=== PATIENT | female | born 1985 | race Caucasian/White ===

== ENCOUNTER 2017-11-05 09:04 | Emergency (ER) | payer OTHER ==
[2017-11-05 09:17] VITALS: RESP 18; TEMP 98.1
[2017-11-05] MEDS ORDERED: PROPARACAINE 0.5% OPHTH DROPS 15 ML BTL RIGHT EYE STA (09:46)
[2017-11-05] MEDS ORDERED: PROPARACAINE 0.5% OPHTH DROPS 15 ML BTL ONE (09:46)
[2017-11-05] MEDS ORDERED: SODIUM CHLORIDE 0.9% 1,000 ML IV STA (10:04)
--- NOTE | 2017-11-05 10:08 | ED ---
General Adult HPI - General Chief complaint: Eye Problems Stated complaint: POSS EYE INFECTION Time Seen by Provider: 11/05/17 09:14 Source: patient, RN notes reviewed Mode of arrival: ambulatory Limitations: no limitations - History of Present Illness Initial comments: Patient's 32-year-old female presenting to the emergency room today with a chief complaint of bilateral eye infection. Patient does admit that she noticed some watery drainage over the last 2-3 days. States they have, red irritated. States they're itchy and scratchy. She does admit that she woke up as well as morning with a rash. She states she's felt some chills at home. Does admit to cough and congestion. Patient does make to being a contact wear. States she does sleep or contacts at times. Patient does admit that right eye is worse than left. She states she's had some blurry vision. Patient also admits to some crusting over the eyelid in the morning. Patient denies any other complaints. Patient denies any recent fever, chills, shortness of breath, chest pain, back pain, abdominal pain, nausea or vomiting, numbness or tingling , headaches or visual changes, or any other complaints. - Related Data Home Medications Medication Instructions Recorded Confirmed Ascorbic Acid [Vitamin C] 1,000 mg PO DAILY 11/05/17 11/05/17 Cyanocobalamin (Vitamin B-12) 2,500 mcg PO DAILY 11/05/17 11/05/17 [Vitamin B12] Allergies Allergy/AdvReac Type Severity Reaction Status Date / Time No Known Allergies Allergy Verified 11/05/17 09:26 Review of Systems ROS Statement: Those systems with pertinent positive or pertinent negative responses have been documented in the HPI. ROS Other: All systems not noted in ROS Statement are negative. Past Medical History Additional Past Medical History / Comment(s): pancreatitis History of Any Multi-Drug Resistant Organisms: None Reported Past Surgical History: No Surgical Hx Reported Past Psychological History: Anxiety, Depression Smoking Status: Never smoker Past Alcohol Use History: Abuse, Daily Past Drug Use History: None Reported General Exam - General Exam Comments Initial Comments: General: The patient is awake and alert, in no distress, and does not appear acutely ill. Eye: Pupils are equal, round and reactive to light. Extra-ocular movements are intact. No nystagmus. Increased redness erythema to the conjunctiva bilaterally. Watery discharge. Eye pressures: R: 21, L: 10. Ears, nose, mouth and throat: There are moist mucous membranes and no oral lesions. Neck: The neck is supple, there is no tenderness or JVD. Cardiovascular: There is a regular rate and rhythm. No murmur, rub or gallop is appreciated. Respiratory: Lungs are clear to auscultation, respirations are non-labored, breath sounds are equal. No wheezes, stridor, rales, or rhonchi. Musculoskeletal: Normal ROM, no tenderness. Sensation intact. Neurological: A&O x 3. CN II-XII intact, There are no obvious motor or sensory deficits. Coordination appears grossly intact. Speech is normal. Skin: Skin is warm and dry and no rashes or lesions are noted. Psychiatric: Cooperative, appropriate mood & affect, normal judgment. Limitations: no limitations Course Vital Signs 11/05/17 11/05/17 09:10 10:37 Temperature 98.1 F Pulse Rate 91 79 Respiratory 18 18 Rate Blood Pressure 165/101 137/91 O2 Sat by Pulse 99 99 Oximetry Procedures - Procedures Initial comment: Patient's left and right eyes were anesthetized with proparacaine which did relieve symptoms of scratchiness and itching. The eyes bilaterally were stained with fluorescein and checked with slit lamp exam revealing corneal ulcer on the right and a small ulcers seen on the left eye. Medical Decision Making - Medical Decision Making Patient reexamined this time shows no signs of distress. Patient's slit-lamp exam does reveal corneal ulcer bilaterally. worse on the right than the left. Patient is a contact wearer. Case was discussed and seen by attending physician Dr. Akers. She'll be started on antibiotic drops of Floxin here in the emergency room. Case is discussed with ophthalmology on-call Dr. Castillo's office and patient has an appointment in one hour at 12:45p. Patient's labs been reviewed. Liver enzymes mildly elevated. Patient is a daily drinker. Patient feeling better after IV fluids. - Lab Data Result diagrams: 11/05/17 10:33 11/05/17 10:33 Lab Results 11/05/17 11/05/17 11/05/17 Range/Units 10:33 10:33 10:33 WBC 5.4 (3.8-10.6) k/uL RBC 4.28 (3.80-5.40) m/uL Hgb 14.0 (11.4-16.0) gm/dL Hct 42.1 (34.0-46.0) % MCV 98.4 (80.0-100.0) fL MCH 32.8 (25.0-35.0) pg MCHC 33.3 (31.0-37.0) g/dL RDW 13.0 (11.5-15.5) % Plt Count 142 L (150-450) k/uL Neutrophils % 87 % Lymphocytes % 7 % Monocytes % 5 % Eosinophils % 0 % Basophils % 0 % Neutrophils # 4.7 (1.3-7.7) k/uL Lymphocytes # 0.4 L (1.0-4.8) k/uL Monocytes # 0.3 (0-1.0) k/uL Eosinophils # 0.0 (0-0.7) k/uL Basophils # 0.0 (0-0.2) k/uL Sodium 137 (137-145) mmol/L Potassium 4.1 (3.5-5.1) mmol/L Chloride 94 L (98-107) mmol/L Carbon Dioxide 24 (22-30) mmol/L Anion Gap 19 mmol/L BUN 17 (7-17) mg/dL Creatinine 0.58 (0.52-1.04) mg/dL Est GFR (CKD-EPI)AfAm >90 (>60 ml/min/1.73 sqM) Est GFR (CKD-EPI)NonAf >90 (>60 ml/min/1.73 sqM) Glucose 72 L (74-99) mg/dL Calcium 9.4 (8.4-10.2) mg/dL Total Bilirubin 1.0 (0.2-1.3) mg/dL AST 157 H (14-36) U/L ALT 106 H (9-52) U/L Alkaline Phosphatase 73 (38-126) U/L Total Protein 8.7 H (6.3-8.2) g/dL Albumin 5.0 (3.5-5.0) g/dL Urine Color Urine Appearance (Clear) Urine pH (5.0-8.0) Ur Specific [place] (1.001-1.035) Urine Protein (Negative) Urine Glucose (UA) (Negative) Urine Ketones (Negative) Urine Blood (Negative) Urine Nitrite (Negative) Urine Bilirubin (Negative) Urine Urobilinogen (<2.0) mg/dL Ur Leukocyte Esterase (Negative) Urine RBC (0-5) /hpf Urine WBC (0-5) /hpf Ur Squamous Epith Cells (0-4) /hpf Urine Bacteria (None) /hpf Urine Mucus (None) /hpf Urine HCG, Qual Not Detected (Not Detectd) 11/05/17 Range/Units 10:33 WBC (3.8-10.6) k/uL RBC (3.80-5.40) m/uL Hgb (11.4-16.0) gm/dL Hct (34.0-46.0) % MCV (80.0-100.0) fL MCH (25.0-35.0) pg MCHC (31.0-37.0) g/dL RDW (11.5-15.5) % Plt Count (150-450) k/uL Neutrophils % % Lymphocytes % % Monocytes % % Eosinophils % % Basophils % % Neutrophils # (1.3-7.7) k/uL Lymphocytes # (1.0-4.8) k/uL Monocytes # (0-1.0) k/uL Eosinophils # (0-0.7) k/uL Basophils # (0-0.2) k/uL Sodium (137-145) mmol/L Potassium (3.5-5.1) mmol/L Chloride (98-107) mmol/L Carbon Dioxide (22-30) mmol/L Anion Gap mmol/L BUN (7-17) mg/dL Creatinine (0.52-1.04) mg/dL Est GFR (CKD-EPI)AfAm (>60 ml/min/1.73 sqM) Est GFR (CKD-EPI)NonAf (>60 ml/min/1.73 sqM) Glucose (74-99) mg/dL Calcium (8.4-10.2) mg/dL Total Bilirubin (0.2-1.3) mg/dL AST (14-36) U/L ALT (9-52) U/L Alkaline Phosphatase (38-126) U/L Total Protein (6.3-8.2) g/dL Albumin (3.5-5.0) g/dL Urine Color Yellow Urine Appearance Clear (Clear) Urine pH 5.5 (5.0-8.0) Ur Specific [place] 1.030 (1.001-1.035) Urine Protein 1+ H (Negative) Urine Glucose (UA) Negative (Negative) Urine Ketones 4+ H (Negative) Urine Blood Trace H (Negative) Urine Nitrite Negative (Negative) Urine Bilirubin Negative (Negative) Urine Urobilinogen 2.0 (<2.0) mg/dL Ur Leukocyte Esterase Negative (Negative) Urine RBC 3 (0-5) /hpf Urine WBC 1 (0-5) /hpf Ur Squamous Epith Cells 2 (0-4) /hpf Urine Bacteria Rare H (None) /hpf Urine Mucus Moderate H (None) /hpf Urine HCG, Qual (Not Detectd) Disposition Clinical Impression: Corneal ulcer Disposition: HOME SELF-CARE Condition: Good Instructions: Corneal Ulcer (ED) Additional Instructions: Please use medication as discussed. Please follow-up control systems designer in the office with your appointment at 1245 today. Please return to emergency room if the symptoms increase or worsen or for any other concerns. Is patient prescribed a controlled substance at d/c from ED?: No Referrals: None,Stated [Primary Care Provider] - 1-2 days Darvin Castillo MD [STAFF PHYSICIAN] - 1-2 days Time of Disposition: 11:22
[2017-11-05 10:53] LABS: Basophils % (A) 0 %; Eosinophils % (A) 0 %; HCT 42.1 % (34.0-46.0); Lymphocytes # (A) 0.4 k/uL (1.0-4.8); Lymphocytes % (A) 7 %; MCH 32.8 pg (25.0-35.0); MCHC 33.3 g/dL (31.0-37.0); MCV 98.4 fL (80.0-100.0); Mean Platelet Volume 7.4; Monocytes # (A) 0.3 k/uL (0-1.0); Monocytes % (A) 5 %; Neutrophils # (A) 4.7 k/uL (1.3-7.7); Neutrophils % (A) 87 %; Platelet Count 142 k/uL (150-450); RBC 4.28 m/uL (3.80-5.40); WBC 5.4 k/uL (3.8-10.6)
[2017-11-05 10:56] LABS: Appearance,Urine Clear (Clear); Bacteria,Urine Rare /hpf; Bilirubin,Urine Negative (Negative); Blood,Urine Trace (Negative); Color,Urine Yellow; Glucose,Urine (UA) Negative (Negative); Ketones,Urine 4+ (Negative); Leukocyte Esterase,Urine Negative (Negative); Mucus,Urine Moderate /hpf; Nitrite,Urine Negative (Negative); PH, Urine 5.5 (5.0-8.0); Protein,Urine 1+ (Negative); RBC,Urine 3 /hpf (0-5); Squamous Epithelial Cell,Urine 2 /hpf (0-4)
[2017-11-05 11:00] LABS: ALT 106 U/L (9-52); AST 157 U/L (14-36); Alkaline Phosphatase 73 U/L (38-126); Anion Gap 19 mmol/L; Blood Urea Nitrogen 17 mg/dL (7-17); Calcium 9.4 mg/dL (8.4-10.2); Carbon Dioxide 24 mmol/L (22-30); Chloride 94 mmol/L (98-107); Glucose 72 mg/dL (74-99); Potassium 4.1 mmol/L (3.5-5.1); Sodium 137 mmol/L (137-145); Total Protein 8.7 g/dL (6.3-8.2)
[2017-11-05] MEDS ORDERED: OFLOXACIN 0.3% OPHTH DROPS 5 ML BOTTLE BOTH EYES STA (11:22)
[2017-11-05 12:00] VITALS: BP 142/88; PULSE 85
== END 2017-11-05 11:59 | disposition home or self-care (01) ==
LOC: EC 09:04
DX: H16.003 Unspecified corneal ulcer, bilateral (principal)
CPT/HCPCS: 36415; 80053; 81001; 81025; 85025; 87040; 96360; 99283

== ENCOUNTER 2018-01-24 22:45 | Emergency (ER) | payer OTHER ==
[2018-01-24 22:53] VITALS: RESP 16
[2018-01-24] MEDS ORDERED: SODIUM CHLORIDE 0.9% 1,000 ML IV ONE (23:24)
[2018-01-24 23:46] LABS: Basophils % (A) 0 %; Eosinophils # (A) 0.1 k/uL (0-0.7); Eosinophils % (A) 2 %; HCT 38.1 % (34.0-46.0); HGB 12.5 gm/dL (11.4-16.0); Lymphocytes # (A) 1.4 k/uL (1.0-4.8); Lymphocytes % (A) 28 %; MCH 31.3 pg (25.0-35.0); MCHC 32.9 g/dL (31.0-37.0); MCV 95.1 fL (80.0-100.0); Mean Platelet Volume 6.8; Monocytes # (A) 0.3 k/uL (0-1.0); Monocytes % (A) 5 %; Neutrophils # (A) 3.2 k/uL (1.3-7.7); Neutrophils % (A) 63 %; Platelet Count 235 k/uL (150-450); RBC 4.01 m/uL (3.80-5.40); RDW 13.4 % (11.5-15.5)
[2018-01-25 00:14] LABS: ALT 52 U/L (9-52); AST 57 U/L (14-36); Albumin 4.1 g/dL (3.5-5.0); Alkaline Phosphatase 53 U/L (38-126); Anion Gap 14 mmol/L; Blood Urea Nitrogen 10 mg/dL (7-17); Calcium 7.8 mg/dL (8.4-10.2); Carbon Dioxide 23 mmol/L (22-30); Chloride 109 mmol/L (98-107); Glucose 85 mg/dL (74-99); Lipase 89 U/L (23-300); Magnesium 2.1 mg/dL (1.6-2.3); Potassium 4.3 mmol/L (3.5-5.1); Sodium 146 mmol/L (137-145); Total Bilirubin 0.5 mg/dL (0.2-1.3); Total Protein 7.2 g/dL (6.3-8.2)
--- NOTE | 2018-01-25 00:37 | ED ---
General Adult HPI - General Source: patient, EMS, RN notes reviewed Mode of arrival: EMS Limitations: no limitations <Dayo Hannah P - Last Filed: 01/25/18 00:41> <Eram Day P - Last Filed: 01/25/18 04:27> - General Chief complaint: Alcohol Stated complaint: ETOH Time Seen by Provider: 01/24/18 22:48 - History of Present Illness Initial comments: 32-year-old female presents to the emergency department for a chief complaint of alcohol abuse 2 years. Patient apparently was drinking tonight and fell forward hitting her lip. She refuses to discuss the details of this fall but denies hitting her head. She does have a small laceration to the lip. She states her tetanus is up-to-date. She states she has been tired throughout the day and sleeping more than normal. She states this has been ongoing for months. She denies any cough congestion sore throat. Patient denies any suicidal thoughts, depressive thoughts, but harming herself, or thoughts of harming anyone else. Patient was brought in by EMS because her father wanted her evaluated for chronic alcoholism after this fall. Patient has no other complaints at this time including shortness of breath, chest pain, abdominal pain, nausea or vomiting, headache, or visual changes. (Dayo Hannah) - Related Data Home Medications Medication Instructions Recorded Confirmed Ascorbic Acid [Vitamin C] 1,000 mg PO DAILY 11/05/17 11/05/17 Cyanocobalamin (Vitamin B-12) 2,500 mcg PO DAILY 11/05/17 11/05/17 [Vitamin B12] Allergies Allergy/AdvReac Type Severity Reaction Status Date / Time No Known Allergies Allergy Verified 11/05/17 09:26 Review of Systems ROS Other: All systems not noted in ROS Statement are negative. <Dayo Hannah P - Last Filed: 01/25/18 00:41> ROS Other: All systems not noted in ROS Statement are negative. <Erma Day P - Last Filed: 01/25/18 04:27> ROS Statement: Those systems with pertinent positive or pertinent negative responses have been documented in the HPI. Past Medical History Additional Past Medical History / Comment(s): pancreatitis History of Any Multi-Drug Resistant Organisms: None Reported Past Surgical History: No Surgical Hx Reported Past Psychological History: Anxiety, Depression Smoking Status: Never smoker Past Alcohol Use History: Abuse, Daily Past Drug Use History: None Reported <Dayo Hannah P - Last Filed: 01/25/18 00:41> General Exam Limitations: no limitations General appearance: alert, in no apparent distress Head exam: Present: atraumatic (No signs of trauma noted to the head or neck such as ecchymosis or lacerations), normocephalic, normal inspection Eye exam: Present: normal appearance, PERRL, EOMI. Absent: scleral icterus, conjunctival injection, periorbital swelling ENT exam: Present: normal exam, mucous membranes moist, TM's normal bilaterally , normal external ear exam. Absent: normal oropharynx (Patient has a 1 cm laceration to the left posterior lip. This is not extending into the vermilion border. No other trauma noted in the mouth, all teeth intact.) Neck exam: Present: normal inspection, full ROM. Absent: tenderness, meningismus, lymphadenopathy Respiratory exam: Present: normal lung sounds bilaterally. Absent: respiratory distress, wheezes, rales, rhonchi, stridor Cardiovascular Exam: Present: regular rate, normal rhythm, normal heart sounds. Absent: systolic murmur, diastolic murmur, rubs, gallop, clicks Neurological exam: Present: alert, oriented X3, CN II-XII intact Psychiatric exam: Present: normal affect, normal mood <Dayo Hannah P - Last Filed: 01/25/18 00:41> Vital Signs 01/24/18 01/25/18 22:46 00:46 Temperature 98.0 F 97.8 F Pulse Rate 97 89 Respiratory 16 16 Rate Blood Pressure 139/99 133/78 O2 Sat by Pulse 98 99 Oximetry Medical Decision Making - Lab Data Result diagrams: 01/24/18 23:30 01/24/18 23:30 <Dayo Hannah P - Last Filed: 01/25/18 00:41> - Lab Data Result diagrams: 01/24/18 23:30 01/24/18 23:30 <Erma Day P - Last Filed: 01/25/18 04:27> - Medical Decision Making 32-year-old female presents to the emergency department for chief complaint of chronic alcoholism. Patient also fell today and has a small lip laceration about 0.5 cm. She refuses for this to be sutured. Patient states she is up-to- date on tetanus. Patient is well-appearing although does appear slightly intoxicated. However she is ambulatory. CBC and CMP were drawn which were unremarkable. Patient denied suicidal or depressive thoughts or thoughts of harming herself or anyone else. Patient was given referrals to counselors and alcohol programs. She was again reevaluated and is walking without any difficulty. She has a ride home with her father who will monitor her throughout the night. She will return here if she has any worsening symptoms. ( Daoy Hannah) I personally saw and examined the patient. I reviewed and agree with the mid- level provider findings including all diagnostic interpretations and treatment plans as written. (Erma Day) - Lab Data Lab Results 01/24/18 01/24/18 Range/Units 23:30 23:30 WBC 5.0 (3.8-10.6) k/uL RBC 4.01 (3.80-5.40) m/uL Hgb 12.5 (11.4-16.0) gm/dL Hct 38.1 (34.0-46.0) % MCV 95.1 (80.0-100.0) fL MCH 31.3 (25.0-35.0) pg MCHC 32.9 (31.0-37.0) g/dL RDW 13.4 (11.5-15.5) % Plt Count 235 (150-450) k/uL Neutrophils % 63 % Lymphocytes % 28 % Monocytes % 5 % Eosinophils % 2 % Basophils % 0 % Neutrophils # 3.2 (1.3-7.7) k/uL Lymphocytes # 1.4 (1.0-4.8) k/uL Monocytes # 0.3 (0-1.0) k/uL Eosinophils # 0.1 (0-0.7) k/uL Basophils # 0.0 (0-0.2) k/uL Sodium 146 H (137-145) mmol/L Potassium 4.3 (3.5-5.1) mmol/L Chloride 109 H (98-107) mmol/L Carbon Dioxide 23 (22-30) mmol/L Anion Gap 14 mmol/L BUN 10 (7-17) mg/dL Creatinine 0.57 (0.52-1.04) mg/dL Est GFR (CKD-EPI)AfAm >90 (>60 ml/min/1.73 sqM) Est GFR (CKD-EPI)NonAf >90 (>60 ml/min/1.73 sqM) Glucose 85 (74-99) mg/dL Calcium 7.8 L (8.4-10.2) mg/dL Magnesium 2.1 (1.6-2.3) mg/dL Total Bilirubin 0.5 (0.2-1.3) mg/dL AST 57 H (14-36) U/L ALT 52 (9-52) U/L Alkaline Phosphatase 53 (38-126) U/L Total Protein 7.2 (6.3-8.2) g/dL Albumin 4.1 (3.5-5.0) g/dL Lipase 89 (23-300) U/L Disposition Is patient prescribed a controlled substance at d/c from ED?: No Time of Disposition: 00:37 <Dayo Hannah P - Last Filed: 01/25/18 00:41> <Erma Day P - Last Filed: 01/25/18 04:27> Clinical Impression: Alcoholic intoxication Disposition: HOME SELF-CARE Condition: Good Instructions: Alcohol Intoxication (ED), Abuse of Alcohol (ED) Additional Instructions: Please follow up with the resources given to you. Please follow-up with primary care in 1-2 days. Please return to the emergency department if you have any worsening symptoms. Referrals: Kevin Garnica MD [Primary Care Provider] - 1-2 days
[2018-01-25 00:48] VITALS: BP 133/78; PULSE 89; TEMP 97.8
== END 2018-01-25 00:48 | disposition home or self-care (01) ==
LOC: EC 22:45
DX: F10.129 Alcohol abuse with intoxication, unspecified (principal); S01.511A Laceration without foreign body of lip, initial encounter; W01.0XXA Fall on same level from slipping, tripping and stumbling without subsequent striking against object, initial encounter
CPT/HCPCS: 36415; 80053; 83690; 83735; 85025; 96360; 99284

== ENCOUNTER 2021-06-24 18:48 | Inpatient (IN) | payer OTHER ==
--- NOTE | 2021-06-24 21:06 | US ---
EXAMINATION TYPE: US venous doppler duplex LE RT DATE OF EXAM: 06/24/2021 8:38 PM COMPARISON: NONE CLINICAL HISTORY: swelling r/o dvt. Pain, swelling, warmth, redness to the right lower extremity. Pat ient had 7 weeks ago. SIDE PERFORMED: Right TECHNIQUE: The lower extremity deep venous system is examined utilizing real time linear array sonog rajani with graded compression, doppler sonography and color-flow sonography. VESSELS IMAGED: Common Femoral Vein Deep Femoral Vein Greater Saphenous Vein * Femoral Vein Popliteal Vein Small Saphenous Vein * Proximal Calf Veins (* superficial vessels) [place] Vs PTVs Right Leg: Absent color Doppler flow with hyperechoic thrombus seen throughout the superficial and d eep venous vasculature. IMPRESSION: Right Deep vein thrombosis extending from the confluence of the great saphenous vein with the common femoral vein and extending through the femoral vein, popliteal vein and into the posterior tibial vei ns as well within the superficial peroneal veins.
[2021-06-24] MEDS ORDERED: MORPHINE SULFATE 4 MG/ML SYRINGE IV STA (21:26)
[2021-06-24] MEDS ORDERED: SODIUM CHLORIDE 0.9% 1,000 ML IV STA (21:26)
[2021-06-24] MEDS ORDERED: HEPARIN SODIUM 1,000 UN/ML (10ML VL) IV PRN (21:27)
[2021-06-24] MEDS ORDERED: HEPARIN SODIUM 1,000 UN/ML (10ML VL) IV ONE (21:27)
--- NOTE | 2021-06-24 21:35 | ED ---
General Adult HPI - General Chief complaint: Extremity Injury, Lower Stated complaint: leg pain Time Seen by Provider: 06/24/21 21:10 Source: patient, RN notes reviewed, old records reviewed Mode of arrival: wheelchair Limitations: no limitations - History of Present Illness Initial comments: This is a pleasant, well-appearing 36-year-old female that presents alert and oriented 4 with complaints of right leg pain, swelling and cramping for 2 days. Patient states that she had a baby 7 weeks ago by , otherwise uncomplicated delivery. She states that for the past couple of days she's had increasing cramping in the right groin that has led to swelling and discoloration of the leg from groin to the foot. She states that today she was becoming short of breath with ambulation. She states that she is not a smoker. No previous history of DVTs. She states that her mom is hospitalized at this time for a DVT and she was here to visit. -: days(s) (2) Location: right, lower extremity Radiation: non-radiation Severity scale (1-10): 6 Quality: other (cramping) Associated Symptoms: denies other symptoms Treatments Prior to Arrival: none - Related Data Home Medications Medication Instructions Recorded Confirmed Cholecalciferol [Vitamin D3 (25 25 mcg PO DAILY 06/24/21 06/24/21 Mcg = 1000 Iu)] [place]-3 Fatty Acids [[place]-3] 1,000 mg PO DAILY 06/24/21 06/24/21 [id number] Acid 1 cap PO DAILY 06/24/21 06/24/21 [-U Capsule (formulary)] Venlafaxine HCl [Effexor XR] 37.5 mg PO DAILY 06/24/21 06/24/21 buPROPion HCL [Wellbutrin XL] 150 mg PO DAILY 06/24/21 06/24/21 Allergies Allergy/AdvReac Type Severity Reaction Status Date / Time No Known Allergies Allergy Verified 06/24/21 22:08 Review of Systems ROS Statement: Those systems with pertinent positive or pertinent negative responses have been documented in the HPI. ROS Other: All systems not noted in ROS Statement are negative. Past Medical History Past Medical History: No Reported History Additional Past Medical History / Comment(s): pancreatitis History of Any Multi-Drug Resistant Organisms: None Reported Past Surgical History: No Surgical Hx Reported Past Psychological History: Anxiety, Depression Smoking Status: Never smoker Past Alcohol Use History: Abuse, Daily Past Drug Use History: None Reported General Exam Limitations: no limitations General appearance: alert, in no apparent distress Head exam: Present: atraumatic Eye exam: Present: normal appearance. Absent: scleral icterus, conjunctival injection Neck exam: Present: full ROM. Absent: tenderness, meningismus Respiratory exam: Present: normal lung sounds bilaterally. Absent: respiratory distress Cardiovascular Exam: Present: tachycardia, normal heart sounds GI/Abdominal exam: Present: soft Right Upper Leg exam: Present: swelling (There is discoloration to the extremity, pedal pulses present) Knee exam: Present: swelling Lower Leg exam: Present: swelling Ankle exam: Present: swelling Foot/Toe exam: Present: swelling Neurovascular tendon exam: Present: no vascular compromise. Absent: pulse deficit, abnormal cap refill, extremity cold to touch, foot drop Neurological exam: Present: alert, oriented X3 Psychiatric exam: Present: normal affect, normal mood Skin exam: Present: warm, dry, cyanosis (right lower extremity) Course Vital Signs 06/24/21 18:52 Temperature 98.2 F Pulse Rate 105 H Respiratory 22 Rate Blood Pressure 116/73 O2 Sat by Pulse 100 Oximetry EKG Findings - EKG Results: EKG: sinus rhythm (Ventricular rate 87, [place] interval 0.179, QRS 0.109, QTC 0.422) Medical Decision Making - Medical Decision Making 36-year-old female presents with right leg swelling status post 7 weeks ago. She states that the swelling in the right leg started couple of days ago is progressively getting worse crampy in nature. Ultrasound was ordered showing a DVT extending from the greater saphenous vein and common femoral vein extending to the femoral vein popliteal vein and posterior tibial veins. Patient was started on high-dose heparin. Labs show d-dimer greater than 34, troponin negative at 0.012, GFR greater than 90. I did speak with Dr. Pleitez who recommended CT pelvis. CT of pelvis shows Thrombosis of the right femoral and iliac vein extending to the inferior vena cava. CT of the chest shows multiple bilateral upper and lower pulmonary emboli predominantly in the lower lobes. There is no evidence of right heart strain, no suspicious pulmonary mass. Patient was admitted to the hospital. An additional consult to pulmonology. Upon reassessment patient remains comfortable with no chest pain or difficulty in breathing. Vital signs are stable. Case discussed with Dr. Jackson who was at bedside. - Lab Data Result diagrams: 06/24/21 22:16 06/24/21 22:16 Lab Results 06/24/21 06/24/21 06/24/21 Range/Units 22:16 22:16 22:16 WBC 11.0 H (3.8-10.6) k/uL RBC 3.88 (3.80-5.40) m/uL Hgb 10.6 L (11.4-16.0) gm/dL Hct 34.6 (34.0-46.0) % MCV 89.1 (80.0-100.0) fL MCH 27.3 (25.0-35.0) pg MCHC 30.7 L (31.0-37.0) g/dL RDW 13.4 (11.5-15.5) % Plt Count 251 (150-450) k/uL MPV 7.7 Neutrophils % 85 % Lymphocytes % 7 % Monocytes % 6 % Eosinophils % 1 % Basophils % 1 % Neutrophils # 9.3 H (1.3-7.7) k/uL Lymphocytes # 0.8 L (1.0-4.8) k/uL Monocytes # 0.6 (0-1.0) k/uL Eosinophils # 0.1 (0-0.7) k/uL Basophils # 0.1 (0-0.2) k/uL PT 11.1 (9.0-12.0) sec INR 1.0 (<1.2) APTT 25.2 (22.0-30.0) sec D-Dimer >34.10 H (<0.60) mg/L FEU Sodium 134 L (137-145) mmol/L Potassium 4.6 (3.5-5.1) mmol/L Chloride 101 (98-107) mmol/L Carbon Dioxide 19 L (22-30) mmol/L Anion Gap 14 mmol/L BUN 19 H (7-17) mg/dL Creatinine 0.61 (0.52-1.04) mg/dL Est GFR (CKD-EPI)AfAm >90 (>60 ml/min/1.73 sqM) Est GFR (CKD-EPI)NonAf >90 (>60 ml/min/1.73 sqM) Glucose 91 (74-99) mg/dL Calcium 9.3 (8.4-10.2) mg/dL Magnesium 2.0 (1.6-2.3) mg/dL Total Bilirubin 0.6 (0.2-1.3) mg/dL AST 27 (14-36) U/L ALT 28 (4-34) U/L Alkaline Phosphatase 95 (38-126) U/L Troponin I (0.000-0.034) ng/mL Total Protein 8.3 H (6.3-8.2) g/dL Albumin 4.6 (3.5-5.0) g/dL 06/24/21 Range/Units 22:16 WBC (3.8-10.6) k/uL RBC (3.80-5.40) m/uL Hgb (11.4-16.0) gm/dL Hct (34.0-46.0) % MCV (80.0-100.0) fL MCH (25.0-35.0) pg MCHC (31.0-37.0) g/dL RDW (11.5-15.5) % Plt Count (150-450) k/uL MPV Neutrophils % % Lymphocytes % % Monocytes % % Eosinophils % % Basophils % % Neutrophils # (1.3-7.7) k/uL Lymphocytes # (1.0-4.8) k/uL Monocytes # (0-1.0) k/uL Eosinophils # (0-0.7) k/uL Basophils # (0-0.2) k/uL PT (9.0-12.0) sec INR (<1.2) APTT (22.0-30.0) sec D-Dimer (<0.60) mg/L FEU Sodium (137-145) mmol/L Potassium (3.5-5.1) mmol/L Chloride (98-107) mmol/L Carbon Dioxide (22-30) mmol/L Anion Gap mmol/L BUN (7-17) mg/dL Creatinine (0.52-1.04) mg/dL Est GFR (CKD-EPI)AfAm (>60 ml/min/1.73 sqM) Est GFR (CKD-EPI)NonAf (>60 ml/min/1.73 sqM) Glucose (74-99) mg/dL Calcium (8.4-10.2) mg/dL Magnesium (1.6-2.3) mg/dL Total Bilirubin (0.2-1.3) mg/dL AST (14-36) U/L ALT (4-34) U/L Alkaline Phosphatase (38-126) U/L Troponin I <0.012 (0.000-0.034) ng/mL Total Protein (6.3-8.2) g/dL Albumin (3.5-5.0) g/dL Critical Care Time Critical Care Time: Yes Total Critical Care Time: 32 (Patient started on heparin drip for bilateral pulmonary embolisms and right leg DVT, pain was managed with morphine, consults to vascular Dr. Pleitez notified) Disposition Clinical Impression: DVT (deep venous thrombosis), Bilateral pulmonary embolism Disposition: ADMITTED IP TO THIS [facility] Decision Date: 06/24/21 Decision Time: 21:45
[2021-06-24] MEDS ORDERED: ACETAMINOPHEN TAB 325 MG TAB PO PRN (21:42)
[2021-06-24] MEDS ORDERED: NALOXONE 0.4 MG/ML 1 ML VIAL IV PRN (21:42)
[2021-06-24 22:34] LABS: Basophils # (A) 0.1 k/uL (0-0.2); Basophils % (A) 1 %; Eosinophils # (A) 0.1 k/uL (0-0.7); Eosinophils % (A) 1 %; HCT 34.6 % (34.0-46.0); HGB 10.6 gm/dL (11.4-16.0); Lymphocytes # (A) 0.8 k/uL (1.0-4.8); Lymphocytes % (A) 7 %; MCH 27.3 pg (25.0-35.0); MCHC 30.7 g/dL (31.0-37.0); MCV 89.1 fL (80.0-100.0); Mean Platelet Volume 7.7; Monocytes # (A) 0.6 k/uL (0-1.0); Monocytes % (A) 6 %; Neutrophils # (A) 9.3 k/uL (1.3-7.7); Neutrophils % (A) 85 %; Platelet Count 251 k/uL (150-450); RBC 3.88 m/uL (3.80-5.40); RDW 13.4 % (11.5-15.5)
[2021-06-24 22:42] LABS: ALT 28 U/L (4-34); AST 27 U/L (14-36); African American GFR (CKD) >90 (>60 ml/min/1.73 sqM); Albumin 4.6 g/dL (3.5-5.0); Alkaline Phosphatase 95 U/L (38-126); Anion Gap 14 mmol/L; Blood Urea Nitrogen 19 mg/dL (7-17); Calcium 9.3 mg/dL (8.4-10.2); Carbon Dioxide 19 mmol/L (22-30); Chloride 101 mmol/L (98-107); Glucose 91 mg/dL (74-99); Non-African American GFR(CKD) >90 (>60 ml/min/1.73 sqM); Potassium 4.6 mmol/L (3.5-5.1); Sodium 134 mmol/L (137-145); Total Bilirubin 0.6 mg/dL (0.2-1.3); Total Protein 8.3 g/dL (6.3-8.2)
[2021-06-24 22:54] LABS: Partial Thromboplastin Time 25.2 sec (22.0-30.0); Prothrombin Time 11.1 sec (9.0-12.0)
--- NOTE | 2021-06-24 22:55 | CT ---
EXAMINATION TYPE: CT pelvis w con DATE OF EXAM: 06/24/2021 COMPARISON: None HISTORY: r/o pe CT DLP: 870.9 mGycm Automated exposure control for dose reduction was used. CONTRAST: Performed with IV Contrast, patient injected with 100 mL of Isovue 370. Images obtained from the bottom of the kidneys to the subtrochanteric femurs with IV contrast. There is contrast opacification of the lower poles of the kidneys which appear normal. There is no ev idence of retroperitoneal adenopathy. The bladder distends smoothly. Uterus is intact. No evidence of pelvic mass. There is decreased enhancement in the right femoral vein and right iliac vein consisten t with thrombosis. There is normal enhancement of the inferior vena cava. There is normal enhancement of the left iliac vein and left femoral vein. Right femoral vein is somewhat dilated. There is mild stranding around the right femoral vein. There is some mild stranding also in the pelvis in the right adnexal region. Appendix appears normal. There is no ascites. No sign of free air. Bony structures a ppear intact. IMPRESSION: There is thrombosis of the right femoral and iliac vein. Thrombus extends up to the inferior vena cav a. There is mild fluid at the right adnexal region with some mild fat stranding that could relate to venous thrombus. No definite adnexal mass.
--- NOTE | 2021-06-24 23:02 | CT ---
EXAMINATION TYPE: CT angio chest DATE OF EXAM: 06/24/2021 COMPARISON: None HISTORY: r/o PE CT DLP: 870.9 mGycm Automated exposure control for dose reduction was used. CONTRAST: Performed with IV Contrast, patient injected with 100 mL of Isovue 370. Images obtained from the thoracic inlet to the diaphragm with IV contrast. There are Three-D postproc essed images. The mediastinum is normal. Thoracic aorta is intact. No adenopathy. Aortic arch appears intact. There is no aneurysm or dissection. There are no hilar masses. There are multiple filling defects in the left lower lobe pulmonary artery. There is also thrombus in the lingula left upper lobe pulmonary artery. There are multiple filling defects at the distal right lower lobe pulmonary artery with some extension into the posterior basal segment branch. There are s mall filling defects in the right middle lobe pulmonary artery. Heart size is normal. No sign of righ t heart strain. No pleural effusion. The lungs are clear of consolidation. Thoracic spine is intact. Sternum is intact. The upper abdominal soft tissues are intact. IMPRESSION: Multiple bilateral upper and lower lobe pulmonary emboli. There is predominance of the lower lobes. N o sign of right heart strain. Normal heart. No suspicious pulmonary mass. Exam was discussed with emergency room staff at 11:00 PM
[2021-06-24] MEDS: HEPARIN SOD,PORK IN 0.45% NACL 25,000 UNIT in 0.45% NACL 1 250ML.BAG IV SCH (23:12)
[2021-06-25] MEDS: HYDROmorphone 0.5 MG/0.5 ML SYRINGE IVP PRN ×7 (01:19→22:40)
[2021-06-25] MEDS: SODIUM CHLORIDE 0.9% 1,000 ML IV SCH ×2 (01:19→14:17)
--- NOTE | 2021-06-25 02:11 | P.HPIM ---
History of Present Illness H&P Date: 06/24/21 Chief Complaint: Right thigh pain 36-year-old female no significant past medical history 7 weeks Patient comes in visiting her mother was hospitalized for DVT. Patient lives in [place] and she drove today all the way down upon arrival she noted worsening of her right leg pain which she's been having for the past few days today she noticed significant swelling and dusky looking right lower extremity she also notes that that she's getting easily fatigued but denies any chest pain fevers or chills denies any coughing or upper respiratory symptoms denies any abdominal pain nausea vomiting denies any changes in her urinary bowel habits denies any vaginal bleeding. She 7 weeks after section resulted in a healthy baby boy. She denies any history of COPD, heart disease, blood clots. Workup in the ED showed extensive DVT of the right lower extremity extending all the way into the inferior vena cava CT angiogram the chest showed bilateral upper and lower pulmonary embolism Review of Systems Pertinent positives as noted in HPI. All other systems were reviewed and are negative Past Medical History Past Medical History: No Reported History Additional Past Medical History / Comment(s): pancreatitis History of Any Multi-Drug Resistant Organisms: None Reported Past Surgical History: No Surgical Hx Reported Past Psychological History: Anxiety, Depression Smoking Status: Never smoker Past Alcohol Use History: Abuse, Daily Past Drug Use History: None Reported - Past Family History Family Family Medical History: Deep Vein Thrombosis (DVT) Medications and Allergies Home Medications Medication Instructions Recorded Confirmed Type Cholecalciferol [Vitamin D3 (25 25 mcg PO DAILY 06/24/21 06/24/21 History Mcg = 1000 Iu)] [place]-3 Fatty Acids [[place]-3] 1,000 mg PO DAILY 06/24/21 06/24/21 History Ncx-Chow-Vzgmb Acid 1 cap PO DAILY 06/24/21 06/24/21 History [-U Capsule (formulary)] Venlafaxine HCl [Effexor XR] 37.5 mg PO DAILY 06/24/21 06/24/21 History buPROPion HCL [Wellbutrin XL] 150 mg PO DAILY 06/24/21 06/24/21 History Allergies Allergy/AdvReac Type Severity Reaction Status Date / Time No Known Allergies Allergy Verified 06/24/21 22:08 Physical Exam Vitals: Vital Signs Temp Pulse Resp BP Pulse Ox 06/25/21 01:17 92 18 114/64 100 06/24/21 18:52 98.2 F 105 H 22 116/73 100 Intake and Output 06/24/21 06/24/21 06/25/21 14:59 22:59 06:59 Other: Weight 81.647 kg Constitutional: No acute distress, conversant, pleasant Eyes: Anicteric sclerae, moist conjunctiva, Pupils equal round reactive to light ENMT: NC/AT Oropharynx clear, no erythema, or exudates Neck: Supple, FROM, no masses, or JVD No carotid bruits No thyromegaly Lungs: Clear to auscultation Clear to percussion Normal respiratory effort, no accessory muscle use Cardiovascular: Heart regular in rate and rhythm, No murmurs, gallops, or rubs No peripheral edema Abdominal: Soft Nontender, no guarding, rebound or rigidity Abdomen moving with respiration Normoactive bowel sounds No hepatomegaly, No splenomegaly No palpable mass No abdominal wall hernia noted Skin: Normal temperature, tone, texture, turgor No induration No subcutaneous nodules No rash, lesions No ulcers Extremities: Right lower extremity looks congested and tense, larger compared to the left lower extremity tender to deep palpation proximally at the time No digital cyanosis No clubbing Pedal pulses intact and symmetrical Radial pulses intact and symmetrical No calf tenderness Psychiatric: Alert and oriented to person, place and time Appropriate affect fair judgement Neuro Muscles Strength 4/5 in all 4 extremities Sensation to light touch grossly present throughout Cranial nerves II-XII grossly intact No focal sensory deficits Lymphatics: no palpable cervical or supraclavicular , or inguinal lymph nodes Results CBC & Chem 7: 06/24/21 22:16 06/24/21 22:16 Labs: Abnormal Lab Results - Last 24 Hours (Table) 06/24/21 06/24/21 06/24/21 Range/Units 22:16 22:16 22:16 WBC 11.0 H (3.8-10.6) k/uL Hgb 10.6 L (11.4-16.0) gm/dL MCHC 30.7 L (31.0-37.0) g/dL Neutrophils # 9.3 H (1.3-7.7) k/uL Lymphocytes # 0.8 L (1.0-4.8) k/uL D-Dimer >34.10 H (<0.60) mg/L FEU Sodium 134 L (137-145) mmol/L Carbon Dioxide 19 L (22-30) mmol/L BUN 19 H (7-17) mg/dL Total Protein 8.3 H (6.3-8.2) g/dL Assessment and Plan Assessment: Extensive venous thromboembolism of the right lower extremity, bilateral upper and lower PEs 7 weeks Monitor vital signs Supplemental oxygen as needed currently patient on room air saturating 100% Supportive care Cardiac monitoring Heparin drip for acute venous thrombi involves and CT angiogram the chest suggestive no right heart strain Vascular consultation Resume home antidepressant medications Full code DVT prophylaxis patient on heparin drip for acute venous thromboembolic Anticipated length of stay less than 2 midnights
[2021-06-25 05:00] LABS: Basophils # (A) 0.1 k/uL (0-0.2); Basophils % (A) 1 %; Eosinophils # (A) 0.2 k/uL (0-0.7); Eosinophils % (A) 3 %; HCT 30.2 % (34.0-46.0); HGB 9.3 gm/dL (11.4-16.0); Lymphocytes # (A) 1.7 k/uL (1.0-4.8); Lymphocytes % (A) 22 %; MCHC 30.8 g/dL (31.0-37.0); MCV 90.9 fL (80.0-100.0); Mean Platelet Volume 9.4; Monocytes # (A) 0.5 k/uL (0-1.0); Monocytes % (A) 7 %; Neutrophils # (A) 4.9 k/uL (1.3-7.7); Neutrophils % (A) 65 %; Platelet Count 200 k/uL (150-450); RBC 3.32 m/uL (3.80-5.40); RDW 13.6 % (11.5-15.5); WBC 7.5 k/uL (3.8-10.6)
[2021-06-25] MEDS: buPROPion XL 150 MG TAB.ER.24H PO SCH (09:30)
[2021-06-25] MEDS: PRENATAL VIT-IRON-FOLIC ACID 1 EACH CAP PO SCH (09:30)
[2021-06-25] MEDS: VENLAFAXINE HCL ER 37.5 MG CAP PO SCH (09:30)
--- NOTE | 2021-06-25 10:27 | P.GSCN ---
History of Present Illness Consult date: 06/25/21 Reason for Consult: Extensive DVT, pulmonary embolism Requesting physician: Clive Kurtz History of present illness: This is a pleasant 36-year-old female who presented to the emergency department for evaluation of right lower extremity swelling and pain. Patient states that she was traveling from [place] to see her mother who is here admitted with a DVT. She recently delivered by approximately 70 weeks ago. No prior history of DVT or PE. States the was uncomplicated. States that pain significantly got worse in her right lower extremity and began experiencing shortness of breath. She denies any chest pain, fevers, chills, nausea or vomiting. She did try 4 hours from [place] to see her mom. Patient had venous duplex right lower extremity with significant clot. CT angiogram also showed multiple bilateral upper and lower pulmonary emboli. Vascular surgery was consulted for the above. Patient is currently denying any shortness of breath at rest. She is maintaining oxygen saturation 97-100% on room air. Troponins were negative. Vital signs have been stable. She's been afebrile. Review of Systems A 14 point review systems was completed all pertinent positives and negatives as stated in the HPI. Past Medical History Past Medical History: No Reported History Additional Past Medical History / Comment(s): pancreatitis, gestational diabetes, covid History of Any Multi-Drug Resistant Organisms: None Reported Past Surgical History: Section Past Anesthesia/Blood Transfusion Reactions: No Reported Reaction Past Psychological History: Anxiety, Depression Smoking Status: Never smoker Past Alcohol Use History: Abuse, Daily Past Drug Use History: None Reported - Past Family History Father Family Medical History: Hypertension Family Family Medical History: Deep Vein Thrombosis (DVT) Medications and Allergies Home Medications Medication Instructions Recorded Confirmed Type Cholecalciferol [Vitamin D3 (25 25 mcg PO DAILY 06/24/21 06/24/21 History Mcg = 1000 Iu)] [place]-3 Fatty Acids [[place]-3] 1,000 mg PO DAILY 06/24/21 06/24/21 History Gfj-Uyao-Vhxal Acid 1 cap PO DAILY 06/24/21 06/24/21 History [-U Capsule (formulary)] Venlafaxine HCl [Effexor XR] 37.5 mg PO DAILY 06/24/21 06/24/21 History buPROPion HCL [Wellbutrin XL] 150 mg PO DAILY 06/24/21 06/24/21 History Allergies Allergy/AdvReac Type Severity Reaction Status Date / Time No Known Allergies Allergy Verified 06/24/21 22:08 Surgical - Exam Vital Signs Temp Pulse Resp BP Pulse Ox 98.2 F 105 H 22 116/73 100 06/24/21 18:52 06/24/21 18:52 06/24/21 18:52 06/24/21 18:52 06/24/21 18:52 General appearance: The patient is alert, oriented, appears in no acute distress. HET: Head is normocephalic and atraumatic. Pupils are equal and reactive. Neck: Supple without lymphadenopathy. Trachea midline. Heart: S1 S2. Regular rate and rhythm. Lungs: Clear to auscultation bilaterally. Abdomen: Soft, nontender, nondistended. Extremities: Right lower extremity with significant edema from the thigh down. Increased redness, warm to the touch TTP. Palpable +2 dorsalis pedal pulse. Neurological: No focal deficits. Strength and sensation are grossly intact. Results - Labs 06/25/21 04:49 06/24/21 22:16 Abnormal Lab Results - Last 24 Hours (Table) 06/24/21 06/24/21 06/24/21 Range/Units 22:16 22:16 22:16 WBC 11.0 H (3.8-10.6) k/uL RBC (3.80-5.40) m/uL Hgb 10.6 L (11.4-16.0) gm/dL Hct (34.0-46.0) % MCHC 30.7 L (31.0-37.0) g/dL Neutrophils # 9.3 H (1.3-7.7) k/uL Lymphocytes # 0.8 L (1.0-4.8) k/uL APTT (22.0-30.0) sec D-Dimer >34.10 H (<0.60) mg/L FEU Sodium 134 L (137-145) mmol/L Carbon Dioxide 19 L (22-30) mmol/L BUN 19 H (7-17) mg/dL Total Protein 8.3 H (6.3-8.2) g/dL 06/25/21 06/25/21 Range/Units 04:49 04:49 WBC (3.8-10.6) k/uL RBC 3.32 L (3.80-5.40) m/uL Hgb 9.3 L (11.4-16.0) gm/dL Hct 30.2 L (34.0-46.0) % MCHC 30.8 L (31.0-37.0) g/dL Neutrophils # (1.3-7.7) k/uL Lymphocytes # (1.0-4.8) k/uL APTT 91.2 H (22.0-30.0) sec D-Dimer (<0.60) mg/L FEU Sodium (137-145) mmol/L Carbon Dioxide (22-30) mmol/L BUN (7-17) mg/dL Total Protein (6.3-8.2) g/dL Diabetes panel 06/24/21 Range/Units 22:16 Sodium 134 L (137-145) mmol/L Potassium 4.6 (3.5-5.1) mmol/L Chloride 101 (98-107) mmol/L Carbon Dioxide 19 L (22-30) mmol/L BUN 19 H (7-17) mg/dL Creatinine 0.61 (0.52-1.04) mg/dL Glucose 91 (74-99) mg/dL Calcium 9.3 (8.4-10.2) mg/dL AST 27 (14-36) U/L ALT 28 (4-34) U/L Alkaline Phosphatase 95 (38-126) U/L Total Protein 8.3 H (6.3-8.2) g/dL Albumin 4.6 (3.5-5.0) g/dL Calcium panel 06/24/21 Range/Units 22:16 Calcium 9.3 (8.4-10.2) mg/dL Albumin 4.6 (3.5-5.0) g/dL Pituitary panel 06/24/21 Range/Units 22:16 Sodium 134 L (137-145) mmol/L Potassium 4.6 (3.5-5.1) mmol/L Chloride 101 (98-107) mmol/L Carbon Dioxide 19 L (22-30) mmol/L BUN 19 H (7-17) mg/dL Creatinine 0.61 (0.52-1.04) mg/dL Glucose 91 (74-99) mg/dL Calcium 9.3 (8.4-10.2) mg/dL Adrenal panel 06/24/21 Range/Units 22:16 Sodium 134 L (137-145) mmol/L Potassium 4.6 (3.5-5.1) mmol/L Chloride 101 (98-107) mmol/L Carbon Dioxide 19 L (22-30) mmol/L BUN 19 H (7-17) mg/dL Creatinine 0.61 (0.52-1.04) mg/dL Glucose 91 (74-99) mg/dL Calcium 9.3 (8.4-10.2) mg/dL Total Bilirubin 0.6 (0.2-1.3) mg/dL AST 27 (14-36) U/L ALT 28 (4-34) U/L Alkaline Phosphatase 95 (38-126) U/L Total Protein 8.3 H (6.3-8.2) g/dL Albumin 4.6 (3.5-5.0) g/dL - Imaging Comments: Venous duplex right lower extremity: Right deep vein thrombosis extending from the confluence of the great saphenous vein with the common femoral vein and extending through the femoral vein, popliteal vein and into the posterior tibial veins as well as with the superficial peroneal veins Pelvis CT: Thrombus of the right femoral and iliac vein. Thrombus extends up to the inferior vena cava. There is mild fluid at the right adnexal region with some mild fat stranding that could relate to venous thrombus. No definite adnexal mass. Chest CT angiogram: Multiple bilateral upper and lower lobe pulmonary emboli. Predominance of the lower lobes. No sign of right heart strain. Normal heart. No suspicious pulmonary mass. CT scan - chest: report reviewed CT scan - pelvis: report reviewed Assessment and Plan Assessment: 1. Right lower extremity DVT femoral and iliac vein 2. Multiple bilateral pulmonary emboli 3. Recent section delivery, 7 a weeks ago Plan: 1. Continue IV heparin drip 2. Patient scheduled for right iliofemoral vein percutaneous thrombectomy. Procedure discussed with patient in detail including risks and benefits. Patient willing to proceed. 3. Consult to hematology, family history of DVTs 4. Will likely transition over to oral anticoagulation tomorrow, discussed with patient will likely need to continue anticoagulation for up to 6 months 5. No indication at this time to proceed with EKOS Thank you for this consultation, we will continue to follow The impression and plan of care has been dictated as directed. I performed a history and examination of this patient, discussed the same with the dictator. I agree with the dictator's note ,documented as a scribe. Any additional findings or plans will be noted.
--- NOTE | 2021-06-25 12:52 | P.CNPUL ---
History of Present Illness Consult date: 06/25/21 Requesting physician: Ortiz Kwong Reason for consult: pulmonary embolism, DVT Chief complaint: Right lower extremity pain and swelling History of present illness: This is a 36-year-old female, she is , week 7. Patient had strong family history of hypercoagulable state, 2 days prior to her presentation, patient was complaining of right groin pain and swelling. Did not think much of it. And yesterday the patient drove about 4 hours from [place] to see her mother who was admitted to our institution with acute deep vein thrombosis. The patient herself had no prior history of DVT or pulmonary embolism, and she had a relatively uncomplicated . Considering the worsening of the pain, patient presented to the ER, and a venous Doppler was done, it showed si gnificant thrombosis, extending from the confluence of the greater saphenous vein with a common femoral vein and extending through the femoral vein popliteal vein into the posterior tibial vein as well as within the superficial peroneal veins patient had no major pulmonary symptoms, she had no shortness of breath, however a CT angiogram of the chest did show evidence of bilateral pulmonary embolism and no evidence of RV strain noted on the CT of the chest. Echocardiogram is pending. Considering the significant thromboses involving her venous system, patient was seen by vascular surgery, and she is now scheduled to have right iliofemoral vein percutaneous thrombectomy again pulmonary-[place] the patient seems to be doing well in spite of her multiple thromboembolic disease involving both lungs patient is presently on heparin. Review of Systems Constitutional: Negative HEENT: Negative Pulmonary: Negative GI: Negative Genitourinary: Negative Musculoskeletal right groin pain and swelling Neurologic: Negative Psychiatric: Negative Hematologic: As noted in HPI Endocrine: Negative Skin: Negative Past Medical History Past Medical History: No Reported History Additional Past Medical History / Comment(s): pancreatitis, gestational diabetes, covid History of Any Multi-Drug Resistant Organisms: None Reported Past Surgical History: Section Past Anesthesia/Blood Transfusion Reactions: No Reported Reaction Past Psychological History: Anxiety, Depression Smoking Status: Never smoker Past Alcohol Use History: Abuse, Daily Past Drug Use History: None Reported - Past Family History Father Family Medical History: Hypertension Family Family Medical History: Deep Vein Thrombosis (DVT) Medications and Allergies Home Medications Medication Instructions Recorded Confirmed Type Cholecalciferol [Vitamin D3 (25 25 mcg PO DAILY 06/24/21 06/24/21 History Mcg = 1000 Iu)] [place]-3 Fatty Acids [[place]-3] 1,000 mg PO DAILY 06/24/21 06/24/21 History Uev-Uyrg-Masku Acid 1 cap PO DAILY 06/24/21 06/24/21 History [-U Capsule (formulary)] Venlafaxine HCl [Effexor XR] 37.5 mg PO DAILY 06/24/21 06/24/21 History buPROPion HCL [Wellbutrin XL] 150 mg PO DAILY 06/24/21 06/24/21 History Allergies Allergy/AdvReac Type Severity Reaction Status Date / Time No Known Allergies Allergy Verified 06/24/21 22:08 Physical Exam Vitals: Vital Signs Temp Pulse Pulse Resp BP BP Pulse Ox 06/25/21 08:00 98.2 F 90 16 102/67 100 06/25/21 04:20 98.4 F 91 16 106/65 97 06/25/21 02:24 98.5 F 94 18 104/69 99 06/25/21 01:17 92 18 114/64 100 06/24/21 18:52 98.2 F 105 H 22 116/73 100 Intake and Output 06/24/21 06/25/21 06/25/21 22:59 06:59 14:59 Intake Total 96.994 Balance 96.994 Intake: Intake, IV Titration 96.994 Amount Heparin Sod,Pork in 0.45% 96.994 NaCl 25,000 unit In 0.45 % NaCl 1 250ml.bag @ 18 UNITS/KG/HR 14.696 mls/hr IV .[id number] [facility] Rx#: [id number] Other: # Voids 1 Weight 81.647 kg 83.3 kg Physical Exam: Revealed 36-year-old female in no distress Head: Atraumatic, normocephalic. HEENT:[Neck is supple.] [No neck masses.] [No thyromegaly.] [No JVD.] Chest: [Clear throughout, no crackles, no rhonchi, no wheezes.] Cardiac Exam: [Normal S1 and S2, no S3 gallop, no murmur.] Abdomen: [Soft, nontender, no megaly, no rebound, no guarding, normal bowel sounds.] Extremities: Evidence of right lower extremity edema from the thigh down, and there is increased redness, warmth to touch in the groin area, good pulses bilaterally Neurological Exam: [No focal neurologic deficit.] Alert and oriented 3. Psychiatric: Normal mood affect and normal mental status examination. Skin: No rashes. Results - Laboratory Findings CBC and BMP: 06/25/21 04:49 06/24/21 22:16 PT/INR, D-dimer PT 11.1 sec (9.0-12.0) 06/24/21 22:16 INR 1.0 (<1.2) 06/24/21 22:16 D-Dimer >34.10 mg/L FEU (<0.60) H 06/24/21 22:16 Abnormal lab findings: Abnormal Labs 06/24/21 06/24/21 06/24/21 22:16 22:16 22:16 WBC 11.0 H RBC Hgb 10.6 L Hct MCHC 30.7 L Neutrophils # 9.3 H Lymphocytes # 0.8 L APTT D-Dimer >34.10 H Sodium 134 L Carbon Dioxide 19 L BUN 19 H Total Protein 8.3 H 06/25/21 06/25/21 04:49 04:49 WBC RBC 3.32 L Hgb 9.3 L Hct 30.2 L MCHC 30.8 L Neutrophils # Lymphocytes # APTT 91.2 H D-Dimer Sodium Carbon Dioxide BUN Total Protein - Diagnostic Findings CT scan - chest: image reviewed (As noted in HPI.) U/S of Legs: image reviewed (As noted in HPI.) Assessment and Plan Assessment: Impression: Acute deep vein thrombosis Acute pulmonary embolism Family history of hypercoagulable state Suspect hypercoagulable state and the patient will eventually need outpatient workup for possible underlying hypercoagulability. week #7. Recommendation: Agree with the present treatment plan including heparin Agree with thrombectomy considering the patient has significant thrombosis of the venous system in the right lower extremity. Echocardiogram is pending. But clinically and based on the CT of the chest no evidence of right ventricular strain. Patient will eventually need to be discharged home on oral anticoagulation t herapy, at least 6 months, maybe longer depending on the workup and the results of the hypercoagulable profile Patient to be seen on outpatient basis by a human resource statistician/patient lives in [facility]. We will continue to follow while inpatient. Time with Patient: Greater than 30
[2021-06-25] MEDS: HEPARIN SOD,PORK IN 0.45% NACL 25,000 UNIT in 0.45% NACL 1 250ML.BAG IV SCH (14:17)
--- NOTE | 2021-06-25 14:57 | P.PN ---
Subjective Progress Note Date: 06/25/21 Principal diagnosis: pulmonary embolus, DVT Patient was seen and examined. No acute events overnight. Patient reports continued pain in her right lower showed minute associated with swelling and redness. Her chest pain has subsided. She denies any shortness of breath or palpitations. No nausea or vomiting. No fever or chills. Objective - Vital Signs Vital signs: Vital Signs Temp 98.2 F 06/25/21 08:00 Pulse 90 06/25/21 08:00 Resp 16 06/25/21 08:00 BP 102/67 06/25/21 08:00 Pulse Ox 100 06/25/21 08:00 Intake & Output 06/24/21 06/25/21 06/25/21 18:59 06:59 18:59 Intake Total 96.994 93.485 Balance 96.994 93.485 Weight 81.647 kg 83.3 kg Intake: Intake, IV Titration 96.994 93.485 Amount Heparin Sod,Pork in 0.45% 96.994 93.485 NaCl 25,000 unit In 0.45 % NaCl 1 250ml.bag @ 18 UNITS/KG/HR 14.696 mls/hr IV .Q17H1M [facility] Rx#: [id number] Other: # Voids 1 - Exam General: [non toxic], [no distress], [appears at stated age] Derm: [warm], [dry] Head: [atraumatic], [normocephalic], [symmetric] Eyes: [EOMI], [no lid lag], [anicteric sclera] Mouth: [no lip lesion], [mucus membranes moist] Cardiovascular: [S1S2 reg], [no murmur], [positive DP pulse bilateral], Lungs: [CTA bilateral], [no rhonchi, no rales] , [no accessory muscle use] Ext: [no gross muscle atrophy], [right lower extremity swollen with erythema over the medial side], [no contractures] Neuro: [no focal neuro deficits] Psych: [Alert], [oriented], [appropriate affect] - Labs CBC & Chem 7: 06/25/21 04:49 06/24/21 22:16 Labs: Abnormal Lab Results - Last 24 Hours (Table) 06/24/21 06/24/21 06/24/21 Range/Units 22:16 22:16 22:16 WBC 11.0 H (3.8-10.6) k/uL RBC (3.80-5.40) m/uL Hgb 10.6 L (11.4-16.0) gm/dL Hct (34.0-46.0) % MCHC 30.7 L (31.0-37.0) g/dL Neutrophils # 9.3 H (1.3-7.7) k/uL Lymphocytes # 0.8 L (1.0-4.8) k/uL APTT (22.0-30.0) sec D-Dimer >34.10 H (<0.60) mg/L FEU Sodium 134 L (137-145) mmol/L Carbon Dioxide 19 L (22-30) mmol/L BUN 19 H (7-17) mg/dL Total Protein 8.3 H (6.3-8.2) g/dL 06/25/21 06/25/21 06/25/21 Range/Units 04:49 04:49 13:13 WBC (3.8-10.6) k/uL RBC 3.32 L (3.80-5.40) m/uL Hgb 9.3 L (11.4-16.0) gm/dL Hct 30.2 L (34.0-46.0) % MCHC 30.8 L (31.0-37.0) g/dL Neutrophils # (1.3-7.7) k/uL Lymphocytes # (1.0-4.8) k/uL APTT 91.2 H 46.9 H (22.0-30.0) sec D-Dimer (<0.60) mg/L FEU Sodium (137-145) mmol/L Carbon Dioxide (22-30) mmol/L BUN (7-17) mg/dL Total Protein (6.3-8.2) g/dL Assessment and Plan Assessment: #Pulmonary embolus #Right lower extremity DVT in the femoral and iliac vein #Status post 7 weeks ago #Normocytic anemia #Elevated BUN #Metabolic acidosis #Hyponatremia Resolved: Leukocytosis CT chest confirms multiple bilateral PE with no evidence of right heart strain. CT pelvis with contrast shows thrombosis of the right femoral and iliac vein. Vascular surgery has been consulted and patient scheduled for thrombectomy at 4 PM. She will be continued on heparin drip for now. Transition to Eliquis when OK with vascular surgery. Pain control with Tylenol and Dilaudid as needed. Continue telemetry monitoring. Echocardiogram pending. Pulmonology and hematology consulted. Patient will need at least 6 weeks of anticoagulation. Her hypercoagulable state thought to be related to . She will need to follow-up with hematology in the outpatient setting for hypercoagulable workup. Continue normal saline at 75 cc/h. Repeat BMP tomorrow morning. DVT prophylaxis: [Heparin drip] Discussed with: [Patient and family] Anticipated discharge: [1-2 days] Anticipated discharge place: [Home] A total of [45] minutes was spent on the care of this complex patient more than 50% of the time was spent in counseling and care coordination. Patient to undergo thrombectomy with Vascular surgery. Switch to Eliquis when OK with Vascular surgery. Patient is pending clinical improvement. Pulmonology and Hematology on board.
--- NOTE | 2021-06-25 15:18 | CA ---
Transthoracic Echo Report Name: Awa Bernard Age: 36 Gender: F : 1985 Exam Date: 06/25/2021 10:19 Exam Location: [facility] Ht (in): 71 Wt (lb): 180 Ordering Physician: Purnima Maki Attending/Referring Phys: [id number], [facility] Maranda Berry RDCS Procedure CPT: Indications: acute PE's bilat Cardiac Hx: No cardiac hx. Technical Quality: Good Contrast 1: Total Dose (mL): Contrast 2: Total Dose (mL): MEASUREMENTS (Male / Female) Normal Values 2D ECHO LV Diastolic Diameter PLAX 4.1 cm 4.2 - 5.9 / 3.9 - 5.3 cm LV Systolic Diameter PLAX 2.9 cm IVS Diastolic Thickness 1.0 cm 0.6 - 1.0 / 0.6 - 0.9 cm LVPW Diastolic Thickness 1.0 cm 0.6 - 1.0 / 0.6 - 0.9 cm LV Relative Wall Thickness 0.5 RV Internal Dim ED PLAX 2.5 cm M-MODE Aortic Root Diameter MM 3.4 cm LA Systolic Diameter MM 2.6 cm LA Ao Ratio MM 0.8 MV E Point Septal Separation 1.3 cm AV Cusp Separation MM 2.5 cm DOPPLER AV Peak Velocity 116.4 cm/s AV Peak Gradient 5.4 mmHg MV Area PHT 5.4 cm??? MR Peak Velocity 115.4 cm/s MR Peak Gradient 5.3 mmHg Mitral E Point Velocity 76.3 cm/s Mitral A Point Velocity 61.7 cm/s Mitral E to A Ratio 1.2 MV Deceleration Time 141.5 ms TR Peak Velocity 196.1 cm/s TR Peak Gradient 15.4 mmHg Right Ventricular Systolic Press 18.9 mmHg FINDINGS Left Ventricle Normal left ventricular size, wall thickness, systolic function with no obvious regional wall motion abnormalities. Normal left ventricular diastolic filling pattern for age. The ejection fraction is visually estimated at 55-60 %. Right Ventricle The right ventricle is normal in size and function. Right ventricular systolic pressure within normal limits. Tapse is 31.2 mm. Right Atrium The right atrium is normal in size. Left Atrium The left atrium is normal in size. Mitral Valve Structurally normal mitral valve without significant stenosis or prolapse. There is a trace of mitral regurgitation. Aortic Valve Structurally normal aortic valve without significant sclerosis or stenosis. There is no aortic regurgitation. Tricuspid Valve Structurally normal tricuspid valve without significant stenosis. Pulmonary artery systolic pressure is normal. Trace tricuspid regurgitation. Pulmonic Valve Structurally normal pulmonic valve without significant stenosis. There is no pulmonic regurgitation. Pericardium Normal pericardium without effusion. Aorta Normal aortic root dimension. CONCLUSIONS Normal LV size and systolic function Previewed by: Dr. Pepe Lorenzo MD (Electronically Signed) Final Date: 25 Jun 2021 15:17
[2021-06-25] MEDS ORDERED: HEPARIN SODIUM,PORCINE 30 ML 30 ML ONE (16:20)
[2021-06-25] MEDS ORDERED: IV FLUID CONTINUATION 1,000 ML IV ONE (16:30)
[2021-06-25] MEDS ORDERED: fentaNYL (PF) 50 MCG/ML 2 ML AMP ONE (16:37)
[2021-06-25] MEDS ORDERED: MIDAZOLAM 2 MG/2 ML VIAL IV ONE (16:42)
[2021-06-25] MEDS: fentaNYL (PF) 50 MCG/ML 2 ML AMP IV ONE ×2 (16:42→17:02)
[2021-06-25] MEDS ORDERED: LIDOCAINE 1% INJ 10MG/ML (5 ML VIAL-PF) SQ ONE ×3 (16:45)
[2021-06-25] MEDS ORDERED: HEPARIN SODIUM 1,000 UN/ML (10ML VL) ONE (16:58)
[2021-06-25] MEDS ORDERED: HEPARIN SODIUM 1,000 UN/ML (10ML VL) IV ONE (17:00)
[2021-06-25] MEDS ORDERED: HYDROmorphone 0.5 MG/0.5 ML SYRINGE IVP ONE (17:19)
--- NOTE | 2021-06-25 18:22 | P.OP ---
Date of Procedure: 06/25/21 Preoperative Diagnosis: Acute right posterior tibial vein to common iliac vein DVT Postoperative Diagnosis: Same Procedure(s) Performed: #1 ultrasound-guided right popliteal vein access #2 percutaneous mechanical thrombectomy of the right common iliac, external iliac, femoral vein with Inari Clotriever device #3 percutaneous transluminal balloon venoplasty of the right common iliac and external iliac vein #4 intravascular ultrasound of the inferior vena cava, right common iliac, external iliac, common femoral, femoral and popliteal veins #5 inferior vena cava, common iliac, external iliac, femoral and popliteal vein venogram #6 conscious sedation 101 minutes Anesthesia: local Surgeon: Clyde Rivas Estimated Blood Loss (ml): 100 Pathology: none sent Condition: stable Disposition: floor Indications for Procedure: 36-year-old female presented to the hospital secondary to right lower extremity swelling and shortness of breath and was diagnosed with acute deep venous thrombosis involving the posterior tibial vein extending to the common iliac vein as well as pulmonary embolism without right heart strain. Her swelling was severe as well as complaining of significant pain in her thigh and therefore discussion was had for possible intervention. She presents to the [facility] for percutaneous thrombectomy. Operative Findings: Extensive occlusive thrombus from the common iliac vein extending to the popliteal vein with some collaterals noted at the common femoral and external iliac veins Description of Procedure: After written and informed consent was obtained from the patient and all risks, benefits and competitions were described the patient is brought to the [facility] and laid in a prone position. The area of the right leg was prepped and draped in usual sterile fashion. Timeout was performed in normal fashion. Utilizing ultrasound the right popliteal vein was located and shown to be distended noncompressible with visible thrombus. Utilizing a multipurpose needle the vein was accessed and wire was placed. 6-Kosovan sheath was then placed over the wire using Seldinger technique area venogram was then obtained demonstrating significant thrombus throughout the popliteal and common femoral segment. There was no flow into the common iliac vein but collaterals noted at the common femoral vein. 035 Glidewire was then placed through this area and across the blockage into the inferior vena cava utilizing a quick cross catheter. Once in the inferior vena cava venogram was obtained demonstrating good intraluminal access. Glidewire was then exchanged for a Glidewire advantage. 9-Kosovan [facility] was then guided over the wire after removal of the 6-Kosovan sheath. Intravascular ultrasound was then performed of the inferior vena cava, common iliac, external iliac, femoral and popliteal vein on the right demonstrating occlusive thrombus throughout. At that time the 9-Kosovan sheath was removed and the Inari sheath was placed in normal fashion. Patient was administered heparin and followed with ACTs. Wire was then placed into the internal jugular vein and chemical thrombectomy Clotriever device was placed above the common iliac vein into the inferior vena cava and multiple passes through the venous system was performed with large amount of thrombus removed. Intravascular ultrasound was then performed once again demonstrating improvement of the lumen with slow flow noted and what appears to be scarring throughout the external iliac and common femoral vein. Due to this a 10 x 40 mm balloon was placed across these areas after measurements were obtained and balloon angioplasty was performed. One final run with the Clotriever device was performed to remove any free thrombus. Final venogram was obtained demonstrating complete resolution of the thrombus with good brisk flow to the inferior vena cava. All guidewires and catheters were removed. Sheath was removed and pressure was held for hemostasis. The patient tolerated procedure well was sent back to her room for recovery.
[2021-06-26] MEDS: HYDROmorphone 0.5 MG/0.5 ML SYRINGE IVP PRN ×5 (02:47→22:19)
[2021-06-26] MEDS: VENLAFAXINE HCL ER 37.5 MG CAP PO SCH (08:23)
[2021-06-26] MEDS: PRENATAL VIT-IRON-FOLIC ACID 1 EACH CAP PO SCH (08:23)
[2021-06-26] MEDS: buPROPion XL 150 MG TAB.ER.24H PO SCH (08:23)
[2021-06-26] MEDS: SODIUM CHLORIDE 0.9% 1,000 ML IV SCH ×2 (08:28→17:36)
--- NOTE | 2021-06-26 08:52 | IR ---
EXAMINATION TYPE: IR well logging mud analysis captain venous DATE OF EXAM: 06/25/2021 COMPARISON: NONE HISTORY: Fluoroscopy time. Fluoroscopy was provided to the referring clinician.
[2021-06-26] MEDS: APIXABAN 5 MG TAB PO SCH ×2 (09:35→19:40)
[2021-06-26 09:51] LABS: HCT 29.2 % (34.0-46.0); HGB 9.2 gm/dL (11.4-16.0); Hypochromasia Slight; MCH 28.7 pg (25.0-35.0); MCHC 31.6 g/dL (31.0-37.0); MCV 90.9 fL (80.0-100.0); Mean Platelet Volume 7.7; Platelet Count 247 k/uL (150-450); RBC 3.21 m/uL (3.80-5.40); RDW 14.1 % (11.5-15.5); WBC 7.7 k/uL (3.8-10.6)
[2021-06-26 10:14] LABS: African American GFR (CKD) >90 (>60 ml/min/1.73 sqM); Anion Gap 8 mmol/L; Blood Urea Nitrogen 8 mg/dL (7-17); Calcium 8.3 mg/dL (8.4-10.2); Carbon Dioxide 22 mmol/L (22-30); Chloride 105 mmol/L (98-107); Glucose 123 mg/dL (74-99); Non-African American GFR(CKD) >90 (>60 ml/min/1.73 sqM); Potassium 3.5 mmol/L (3.5-5.1); Sodium 135 mmol/L (137-145)
--- NOTE | 2021-06-26 10:40 | P.PN ---
Subjective Progress Note Date: 06/26/21 Principal diagnosis: Right lower extremity DVT, pulmonary emboli Patient is seen as a follow-up for bilateral pulmonary emboli and right lower extremity extensive DVT. She is postop day #1 for right percutaneous mechanical thrombectomy of the right common iliac, external iliac, and femoral vein with Inari Clotriever device with balloon venoplasty of the right common iliac and external iliac vein. Also performed was intravascular ultrasound of him. Vena cava, right common iliac external iliac and common femoral popliteal veins; along with venogram. She reports she still having pain in her right lower extremity especially with ambulation. However it has improved since yesterday. She does note improvement in her groin especially. She is denying any shortness of breath at rest, states she does still have some mild shortness of breath with exertion. Echocardiogram shows no evidence of right heart strain. Oxygen saturation remains 98% at room air. Objective - Vital Signs Vital signs: Vital Signs Temp 98.2 F 06/26/21 08:33 Pulse 97 06/26/21 08:33 Resp 16 06/26/21 08:33 BP 113/65 06/26/21 08:33 Pulse Ox 98 06/26/21 08:33 Intake & Output 06/25/21 06/26/21 06/26/21 18:59 06:59 18:59 Intake Total 893.485 Balance 893.485 Intake: IV 175 Intake, IV Titration 618.485 Amount Heparin Sod,Pork in 0.45% 93.485 NaCl 25,000 unit In 0.45 % NaCl 1 250ml.bag @ 18 UNITS/KG/HR 14.696 mls/hr IV .Q17H1M [facility] Rx#: [id number] Sodium Chloride 0.9% 1, 525 000 ml @ 75 mls/hr IV . [id number] [facility] Rx#:[id number] Oral 100 Other: # Voids 1 - Exam General appearance: The patient is alert, oriented, appears in no acute distress. HET: Head is normocephalic and atraumatic. Pupils are equal and reactive. Neck: Supple without lymphadenopathy. Trachea midline. No audible carotid bruit. Heart: S1 S2. Regular rate and rhythm. Lungs: Clear to auscultation bilaterally. Abdomen: Soft, nontender, nondistended. Extremities: Right lower extremity with swelling from the thigh down. Palpable pedal pulse. Toby wrap in place. Neurological: No focal deficits. Strength and sensation are grossly intact. - Labs CBC & Chem 7: 06/26/21 09:03 06/26/21 09:03 Labs: Abnormal Lab Results - Last 24 Hours (Table) 06/25/21 Range/Units 13:13 APTT 46.9 H (22.0-30.0) sec Assessment and Plan Assessment: 1. Right lower extremity DVT femoral and iliac vein status post percutaneous mechanical thrombectomy of right common iliac, external iliac, and femoral vein with percutaneous transluminal balloon venoplasty of the right common iliac and external iliac vein. 2. Multiple bilateral pulmonary emboli 3. Recent section delivery, 7 a weeks ago Plan: 1. Transition to Eliquis 10 mg twice a day, discontinue heparin drip 2. Consult to hematology, family history of DVTs 3. Increase and encourage ambulation 4. Compression stocking to right lower extremity 5. No indication at this time to proceed with EKOS 6. Possible discharge this afternoon Thank you for this consultation, the patient is cleared for discharge from vascular surgery The impression and plan of care has been dictated as directed. Dr. Pleitez I performed a history and examination of this patient, discussed the same with the dictator. I agree with the dictator's note ,documented as a scribe. Any additional findings or plans will be noted.
[2021-06-26] MEDS: HEPARIN SOD,PORK IN 0.45% NACL 25,000 UNIT in 0.45% NACL 1 250ML.BAG IV SCH (11:14)
[2021-06-26] MEDS ORDERED: oxyCODONE-APAP 10-325MG 1 EACH TAB PO PRN (11:16)
--- NOTE | 2021-06-26 11:23 | P.CONS ---
History of Present Illness - Reason for Consult Consult date: 06/26/21 DVT/PE, post Requesting physician: Tomeka Michelle - Chief Complaint SOB, pain, swelling in RLE - History of Present Illness Mrs. Bernard is a very pleasant 36-year-old female with a benign PMH who presented to the ER with c/o persistent and progressive right lower extremity pain, swelling and redness. She had driven [place] from [place] to visit her mom. She had section 8 weeks ago and the delivered a healthy baby boy. Doppler of the right lower extremity showed extensive DVT, and CTA showed multiple bilateral PE. Vascular performed thrombectomy of the right lower extremity and leg swelling is significantly improved. She has been on heparin drip and reports improvement in mild chest discomfort. She denies any bleeding. Her mother is currently admitted with left lower extremity DVT and right PE. Review of Systems 10 point review of systems is negative except as stated in HPI Past Medical History Past Medical History: No Reported History Additional Past Medical History / Comment(s): pancreatitis, gestational diabetes, covid History of Any Multi-Drug Resistant Organisms: None Reported Past Surgical History: Section Past Anesthesia/Blood Transfusion Reactions: No Reported Reaction Past Psychological History: Anxiety, Depression Smoking Status: Never smoker Past Alcohol Use History: Abuse, Daily Past Drug Use History: None Reported - Past Family History Father Family Medical History: Hypertension Family Family Medical History: Deep Vein Thrombosis (DVT) Medications and Allergies Home Medications Medication Instructions Recorded Confirmed Type Cholecalciferol [Vitamin D3 (25 25 mcg PO DAILY 06/24/21 06/24/21 History Mcg = 1000 Iu)] [place]-3 Fatty Acids [[place]-3] 1,000 mg PO DAILY 06/24/21 06/24/21 History Zqj-Zmks-Zeizk Acid 1 cap PO DAILY 06/24/21 06/24/21 History [-U Capsule (formulary)] Venlafaxine HCl [Effexor XR] 37.5 mg PO DAILY 06/24/21 06/24/21 History buPROPion HCL [Wellbutrin XL] 150 mg PO DAILY 06/24/21 06/24/21 History Apixaban [Eliquis Starter Pack 5 - 10 mg PO DIRECTED 30 Days 06/26/21 Rx (for VTE)] #1 each Allergies Allergy/AdvReac Type Severity Reaction Status Date / Time No Known Allergies Allergy Verified 06/24/21 22:08 Physical Exam Vitals: Vital Signs Temp Pulse Pulse Pulse Resp BP Pulse Ox 06/26/21 08:33 98.2 F 97 16 113/65 98 06/26/21 04:00 88 18 102/60 96 06/26/21 00:53 100 18 06/25/21 23:50 98.0 F 100 18 113/68 98 06/25/21 20:00 98.5 F 99 18 123/76 96 06/25/21 18:50 92 128/74 98 06/25/21 18:35 93 114/78 99 06/25/21 18:20 94 113/78 96 06/25/21 16:00 90 108/66 98 06/25/21 14:45 89 111/77 98 06/25/21 14:00 89 89 16 06/25/21 12:00 89 111/77 98 Intake and Output 06/25/21 06/26/21 06/26/21 22:59 06:59 14:59 Intake Total 175 Balance 175 Intake: IV 175 Other: # Voids 1 1 - Constitutional General appearance: average body habitus, cooperative, no acute distress - EENT Eyes: anicteric sclerae, EOMI ENT: hearing grossly normal, normal oropharynx - Neck Neck: no lymphadenopathy - Respiratory Respiratory: bilateral: CTA - Cardiovascular Rhythm: regular Heart sounds: normal: S1, S2 Abnormal Heart Sounds: no systolic murmur, no diastolic murmur, no rub, no S3 Gallop, no S4 Gallop, no click, no other leg Peripheral Edema: right: 2+, left: None - Gastrointestinal General gastrointestinal: no absent bowel sounds, no decreased bowel sounds, no distended, no hepatomegaly, no hyperactive bowel sounds, normal bowel sounds, no organomegaly, no rigid, no scaphoid, soft, no splenomegaly, no tenderness, no umbilical hernia, no ventral hernia - Integumentary Integumentary: normal - Neurologic Neurologic: CNII-XII intact - Musculoskeletal Musculoskeletal: strength equal bilaterally - Psychiatric Psychiatric: A&O x's 3, appropriate affect, intact judgment & insight Results CBC & Chem 7: 06/26/21 09:03 06/26/21 09:03 Labs: Abnormal Lab Results - Last 24 Hours (Table) 05/03/22 Range/Units 13:13 APTT 46.9 H (22.0-30.0) sec CT scan - chest: report reviewed CT scan - pelvis: report reviewed Venous US: report reviewed Assessment and Plan (1) Bilateral pulmonary embolism Current Visit: Yes Status: Acute Priority: High Code(s): I26.99 - OTHER PULMONARY EMBOLISM WITHOUT ACUTE COR PULMONALE SNOMED Code(s): 01828911 (2) DVT (deep venous thrombosis) Current Visit: Yes Status: Acute Priority: High Code(s): I82.409 - ACUTE EMBOLISM AND THOMBOS UNSP DEEP VN UNSP LOWER EXTREMITY SNOMED Code(s): 12 6286915 Plan: Patient has provoked DVT/Travon PE s/p long car ride from [facility] and recent section [address] Alonso discussed with the patient recomm endation and before at least 6 months of anticoagulation, may need to consider a daily aspirin after completion. Doppler of the left lower extremity Her mother is currently diagnosed with PE. Recommendation is for her mother to have the hypercoagulable workup. This information can then be passed on to a [employer] near [place] where patient lives. We will make referral for her. Patient states she has completed breast-feeding so, DOAC anticoagulation is reasonable. Will also pass along to [employer] and [place] anemia, likely iron deficient but, will have them complete workup and treatment for the same. Doctor attests: I performed a history and physical examination of this patient, developed impression and plan of care. Discussed with dictator. I agree with dictators note, documented as a scribe.
--- NOTE | 2021-06-26 13:05 | P.PN ---
Subjective Progress Note Date: 06/26/21 Principal diagnosis: Acute DVT and bilateral pulmonary embolism This is a 36-year-old female, she is , week 7. Patient had strong family history of hypercoagulable state, 2 days prior to her presentation, patient was complaining of right groin pain and swelling. Did not think much of it. And yesterday the [place] [facility] [place] [facility] [place] [facility] [place] who was admitted to our institution with acute deep vein thrombosis. The patient herself had no prior history of DVT or pulmonary embolism, and she had a relatively uncomplicated . Considering the worsening of the pain, patient presented to the ER, and a venous Doppler was done, it showed significant thrombosis, extending from the confluence of the greater saphenous vein with a common femoral vein and extending through the femoral vein popliteal vein into the posterior tibial vein as well as within the superficial peroneal veins patient had no major pulmonary symptoms, she had no shortness of breath, however a CT angiogram of the chest did show evidence of bilateral pulmonary embolism and no evidence of RV strain noted on the CT of the chest. Echocardiogram is pending. Considering the significant thromboses involving her venous system, patient was seen by vascular surgery, and she is now scheduled to have right iliofemoral vein percutaneous thrombectomy again pulmonary-[place] the patient seems to be doing well in spite of her multiple thromboembolic disease involving both lungs patient is presently on heparin. Reevaluated today on 06/26/21, patient is doing well today, she underwent uneventful percutaneous thrombectomy. She is now on eliquis. Heparin has been discontinued. Patient is being considered for discharge, and I suggested to the patient that she sees a hose suspender cutter in the [facility] after discharge. She may require to be on anticoagulation therapy lifetime but she will need a full hypercoagulable profile/workup. This could be done on outpatient basis, and her mother should have a similar hypercoagulable profile. Although the patient may have had her DVT and pulmonary embolism provoked by recent section. Doubt to the trip from [place] down to [place] has anything to do with her provoked DVTs since the symptoms started 2 days before her trip down here. Again mostly because her mother also had DVT, I believe the patient should have formal workup/hypercoagulable profile by a hose suspender cutter in the [facility]. Objective - Vital Signs Vital signs: Vital Signs Temp 98.2 F 06/26/21 08:33 Pulse 97 06/26/21 08:33 Resp 16 06/26/21 08:33 BP 113/65 06/26/21 08:33 Pulse Ox 98 06/26/21 08:33 Intake & Output 06/25/21 06/26/21 06/26/21 18:59 06:59 18:59 Intake Total 893.485 120 Balance 893.485 120 Intake: IV 175 Intake, IV Titration 618.485 Amount Heparin Sod,Pork in 0.45% 93.485 NaCl 25,000 unit In 0.45 % NaCl 1 250ml.bag @ 18 UNITS/KG/HR 14.696 mls/hr IV .Q17H1M SHIVAM Rx#: [id number] Sodium Chloride 0.9% 1, 525 000 ml @ 75 mls/hr IV . [id number] SHIVAM Rx#:[id number] Oral 100 120 Other: # Voids 1 - Exam Physical Exam: Revealed 36-year-old female in no distress Head: Atraumatic, normocephalic. HEENT:[Neck is supple.] [No neck masses.] [No thyromegaly.] [No JVD.] Chest: [Clear throughout, no crackles, no rhonchi, no wheezes.] Cardiac Exam: [Normal S1 and S2, no S3 gallop, no murmur.] Abdomen: [Soft, nontender, no megaly, no rebound, no guarding, normal bowel sounds.] Extremities: Right lower extremity is wrapped with Toby wrap, seems to be swollen. Neurological Exam: [No focal neurologic deficit.] Alert and oriented 3. Psychiatric: Normal mood affect and normal mental status examination. Skin: No rashes. - Labs CBC & Chem 7: 06/26/21 09:03 06/26/21 09:03 Labs: Abnormal Lab Results - Last 24 Hours (Table) 06/25/21 06/26/21 06/26/21 Range/Units 13:13 09:03 09:03 RBC 3.21 L (3.80-5.40) m/uL Hgb 9.2 L (11.4-16.0) gm/dL Hct 29.2 L (34.0-46.0) % APTT 46.9 H (22.0-30.0) sec Sodium 135 L (137-145) mmol/L Glucose 123 H (74-99) mg/dL Calcium 8.3 L (8.4-10.2) mg/dL 06/26/21 Range/Units 09:03 RBC (3.80-5.40) m/uL Hgb (11.4-16.0) gm/dL Hct (34.0-46.0) % APTT 40.3 H (22.0-30.0) sec Sodium (137-145) mmol/L Glucose (74-99) mg/dL Calcium (8.4-10.2) mg/dL Assessment and Plan Assessment: Impression: Acute deep vein thrombosis Acute pulmonary embolism Family history of hypercoagulable state Suspect hypercoagulable state and the patient will eventually need outpatient workup for possible underlying hypercoagulability. week #7. Status post percutaneous thrombectomy done by vascular surgery on her extensive right lower extremity deep vein thrombosis. Recommendation: Will clear the patient for discharge on oral anticoagulants if cleared by other consultants. Patient will eventually need to be discharged home on oral anticoagulation therapy, at least 6 months, maybe longer depending on the workup and the results of the hypercoagulable profile Patient to be seen on outpatient basis by a hose suspender cutter/patient lives in [facility]. Will follow as the Time with Patient: Less than 30
--- NOTE | 2021-06-26 15:07 | P.PN ---
Subjective Progress Note Date: 06/26/21 Principal diagnosis: pulmonary embolus, DVT Patient was seen and examined. No acute events overnight. She underwent ultrasound-guided percutaneous mechanical thrombectomy of the right common iliac, external iliac, femoral vein. Her hemoglobin today is 9.2. She has been transitioned from heparin to Eliquis. Patient reports 7 out of 10 pain in her right lower extremity especially in the groin area. States that she has much difficulty ambulating from her bed to commode. She denies any chest pain, shortness breath or palpitations. No nausea or vomiting. No fever or chills. at bedside. Objective - Vital Signs Vital signs: Vital Signs Temp 98.2 F 06/26/21 08:33 Pulse 86 06/26/21 12:00 Resp 18 06/26/21 12:00 BP 106/70 06/26/21 12:00 Pulse Ox 98 06/26/21 12:00 Intake & Output 06/25/21 06/26/21 06/26/21 18:59 06:59 18:59 Intake Total 893.485 120 Balance 893.485 120 Intake: IV 175 Intake, IV Titration 618.485 Amount Heparin Sod,Pork in 0.45% 93.485 NaCl 25,000 unit In 0.45 % NaCl 1 250ml.bag @ 18 UNITS/KG/HR 14.696 mls/hr IV .Q17H1M SHIVAM Rx#: [id number] Sodium Chloride 0.9% 1, 525 000 ml @ 75 mls/hr IV . [id number] SHIVAM Rx#:[id number] Oral 100 120 Other: # Voids 1 - Exam General: [non toxic], [no distress], [appears at stated age] Derm: [warm], [dry] Head: [atraumatic], [normocephalic], [symmetric] Eyes: [EOMI], [no lid lag], [anicteric sclera] Mouth: [no lip lesion], [mucus membranes moist] Cardiovascular: [S1S2 reg], [no murmur], [positive DP pulse bilateral], Lungs: [CTA bilateral], [no rhonchi, no rales] , [no accessory muscle use] Ext: [no gross muscle atrophy], [right lower extremity swollen with erythema over the medial side], [no contractures] Neuro: [no focal neuro deficits] Psych: [Alert], [oriented], [appropriate affect] - Labs CBC & Chem 7: 06/26/21 09:03 06/26/21 09:03 Labs: Abnormal Lab Results - Last 24 Hours (Table) 06/26/21 06/26/21 06/26/21 Range/Units 09:03 09:03 09:03 RBC 3.21 L (3.80-5.40) m/uL Hgb 9.2 L (11.4-16.0) gm/dL Hct 29.2 L (34.0-46.0) % APTT 40.3 H (22.0-30.0) sec Sodium 135 L (137-145) mmol/L Glucose 123 H (74-99) mg/dL Calcium 8.3 L (8.4-10.2) mg/dL Assessment and Plan Assessment: #Pulmonary embolus #Right lower extremity DVT in the femoral and iliac vein #Status post 7 weeks ago #Normocytic anemia #Hyponatremia, improving Resolved: Leukocytosis, Elevated BUN, metabolic acidosis CT chest confirms multiple bilateral PE with no evidence of right heart strain. CT pelvis with contrast shows thrombosis of the right femoral and iliac vein. She is s/p thrombectomy POD 1. She is transitioned to Eliquis today. Pain control with Tylenol, Percocet (scheduled) and Dilaudid as needed. Continue telemetry monitoring. Echocardiogram shows EF 55-60% with no wall motion abnormalities. Pulmonology, Vascular surgery and hematology on board. Patient will need at least 6 weeks of anticoagulation. Her hypercoagulable state thought to be related to . She will need to follow-up with hematology in the outpatient setting for hypercoagulable workup. Continue normal saline at 75 cc/h. Repeat BMP tomorrow morning. DVT prophylaxis: [Heparin drip] Discussed with: [Patient and family] Anticipated discharge: [1-2 days] Anticipated discharge place: [Home] A total of [45] minutes was spent on the care of this complex patient more than 50% of the time was spent in counseling and care coordination. Patient is cleared from Vascular surgery and Pulmonology for discharge. She is however in alot of pain. Difficulties ambulating from bed to commode. PT and OT will be consulted. Started on Percocet, advised to use Dilaudid only for b reakthrough. Anticipate DC home tomorrow if able to achieve better pain control.
[2021-06-26] MEDS: oxyCODONE-APAP 10-325MG 1 EACH TAB PO SCH ×3 (16:06→23:54)
--- NOTE | 2021-06-26 16:50 | US ---
EXAMINATION TYPE: US venous doppler duplex LE LT DATE OF EXAM: 06/26/2021 4:08 PM COMPARISON: NONE CLINICAL HISTORY: baseline-LLE DVT and bilateral PE. known PE's and right leg DVT, no symptoms on the left SIDE PERFORMED: Left TECHNIQUE: The lower extremity deep venous system is examined utilizing real time linear array sonog rajani with graded compression, doppler sonography and color-flow sonography. VESSELS IMAGED: Common Femoral Vein Deep Femoral Vein Greater Saphenous Vein * Femoral Vein Popliteal Vein Small Saphenous Vein * Proximal Calf Veins (* superficial vessels) Left Leg: Negative for DVT IMPRESSION: No evidence of DVT
[2021-06-27] MEDS: HYDROmorphone 0.5 MG/0.5 ML SYRINGE IVP PRN ×2 (02:18→06:52)
[2021-06-27] MEDS: oxyCODONE-APAP 10-325MG 1 EACH TAB PO SCH ×3 (03:37→12:39)
[2021-06-27] MEDS: PRENATAL VIT-IRON-FOLIC ACID 1 EACH CAP PO SCH (08:48)
[2021-06-27] MEDS: VENLAFAXINE HCL ER 37.5 MG CAP PO SCH (08:48)
[2021-06-27] MEDS: buPROPion XL 150 MG TAB.ER.24H PO SCH (08:48)
[2021-06-27] MEDS: APIXABAN 5 MG TAB PO SCH (08:49)
[2021-06-27 08:53] VITALS: TEMP 98.5
--- NOTE | 2021-06-27 09:49 | P.DS ---
Providers Date of admission: 06/25/21 22:45 Expected date of discharge: 06/27/21 Attending physician: Ortiz Kwong MD Consults: 06/24/21 21:43 Consult Physician Urgent Consulting Provider: Rosita Pleitez Consult Reason/Comments: dvt Do you want consulting provider notified?: Already Contacted 06/24/21 23:36 Consult Physician Routine Consulting Provider: Richard Mota Consult Reason/Comments: Bilateral PE Do you want consulting provider notified?: Yes, Notify in am 06/25/21 10:13 Consult Physician Routine Consulting Provider: Louis Alonso Consult Reason/Comments: DVT and PE, family hx of DVT, work up Do you want consulting provider notified?: Yes Primary care physician: Kevin Garnica Hospital Course: 36-year-old female no significant past medical history 7 weeks Patient comes in visiting her mother was hospitalized for DVT. Patient lives in [place] and she drove today all the way down upon arrival she noted worsening of her right leg pain which she's been having for the past few days today she noticed significant swelling and dusky looking right lower extremity she also notes that that she's getting easily fatigued. She 7 weeks after section resulted in a healthy baby boy. She denies any history of COPD, heart disease, blood clots. Workup in the ED showed extensive DVT of the right lower extremity extending all the way into the inferior vena cava. CT angiogram the chest showed bilateral upper and lower pulmonary embolism. Patient was started on heparin drip. Vascular surgery was consulted and patient underwent thrombectomy of the right lower extremity. She was transitioned from heparin drip to Eliquis. Echocardiogram shows EF 55-60% with no wall motion abnormalities. Pulmonology and hematology was consulted and agreed to the treatment plan. She was cleared from a vascular surgery standpoint. She is advised to continue Eliquis for at least 6 months. She is advised to follow-up with her PCP within 1-2 days of discharge. Follow-up with hematology within 1 month of discharge for hypercoagulable workup. Follow-up with vascular surgery within 1 week of discharge. PT and OT was consulted to work with this patient on the day of discharge. She was discharged home with a 3 day supply of Percocet as needed for severe pain patient verbalized understanding of the plan. This complex discharge took about 45 minutes to complete. General: [non toxic], [no distress], [appears at stated age] Derm: [warm], [dry] Head: [atraumatic], [normocephalic], [symmetric] Eyes: [EOMI], [no lid lag], [anicteric sclera] Mouth: [no lip lesion], [mucus membranes moist] Cardiovascular: [S1S2 reg], [no murmur], [positive DP pulse bilateral], Lungs: [CTA bilateral], [no rhonchi, no rales] , [no accessory muscle use] Ext: [no gross muscle atrophy], [right lower extremity swollen with erythema over the medial side, improved after thrombectomy], [no contractures] Neuro: [no focal neuro deficits] Psych: [Alert], [oriented], [appropriate affect] Discharge Diagnosis: #Pulmonary embolus #Right lower extremity DVT in the femoral and iliac vein #Status post 7 weeks ago #Normocytic anemia #Hyponatremia, improving Resolved: Leukocytosis, Elevated BUN, metabolic acidosis Pertinent Studies: Venous Doppler CTA chest Pelvis CT Echocardiogram Procedures: Thrombectomy Patient Condition at Discharge: Stable Plan - Discharge Summary Discharge Rx Participant: Yes New Discharge Prescriptions: New oxyCODONE-APAP 10-325MG [Percocet 10-325 mg] 1 each PO Q4HR #18 tab Apixaban [Eliquis Starter Pack (for VTE)] 5 - 10 mg PO DIRECTED 30 Days #1 each Continue buPROPion HCL [Wellbutrin XL] 150 mg PO DAILY Venlafaxine HCl [Effexor XR] 37.5 mg PO DAILY Alexandria-3 Fatty Acids [Alexandria-3] 1,000 mg PO DAILY Jhd-Wvnj-Ixkry Acid [-U Capsule (formulary)] 1 cap PO DAILY Cholecalciferol [Vitamin D3 (25 Mcg = 1000 Iu)] 25 mcg PO DAILY Discharge Medication List Cholecalciferol [Vitamin D3 (25 Mcg = 1000 Iu)] 25 mcg PO DAILY 06/24/21 [History] Alexandria-3 Fatty Acids [Alexandria-3] 1,000 mg PO DAILY 06/24/21 [History] Qel-Dirr-Dqtrl Acid [-U Capsule (formulary)] 1 cap PO DAILY 06/24/21 [History] Venlafaxine HCl [Effexor XR] 37.5 mg PO DAILY 06/24/21 [History] buPROPion HCL [Wellbutrin XL] 150 mg PO DAILY 06/24/21 [History] Apixaban [Eliquis Starter Pack (for VTE)] 5 - 10 mg PO DIRECTED 30 Days #1 each 06/26/21 [Rx] oxyCODONE-APAP 10-325MG [Percocet 10-325 mg] 1 each PO Q4HR #18 tab 06/27/21 [Rx] Follow up Appointment(s)/Referral(s): Louis Alonso MD [STAFF PHYSICIAN] - 4 Weeks Kevin Garnica MD [Primary Care Provider] - 1-2 days Clyde Rivas DO [STAFF PHYSICIAN] - 1 Week Activity/Diet/Wound Care/Special Instructions: Diet: Regular FU with PCP within 1-2 days of discharge. FU with Vascular surgery Dr. Rivas within 1 week of discharge. FU with Hematology Dr. Alonso within 1 month of discharge. Take all medications as advised. Come back to the ED or call 911 for worsening Chest pain, shortness of breath, intractable right leg pain, dizziness/lightheadedness. Discharge Disposition: HOME SELF-CARE
--- NOTE | 2021-06-27 10:42 | P.PN ---
Subjective Progress Note Date: 06/27/21 Principal diagnosis: Right lower extremity DVT, pulmonary emboli Patient is seen as a follow-up for bilateral pulmonary emboli and right lower extremity extensive DVT. She is postop day #2 for right percutaneous mechanical thrombectomy of the right common iliac, external iliac, and femoral vein with Inari Clotriever device with balloon venoplasty of the right common iliac and external iliac vein. Also performed was intravascular ultrasound of him. Vena cava, right common iliac external iliac and common femoral popliteal veins; along with venogram. She continues to have she continues to have pain with ambulation, however improved. KELI hose stocking thigh-high in place. She denies any shortness of breath or chest pain. She's been afebrile. Objective - Vital Signs Vital signs: Vital Signs Temp 98.3 F 06/27/21 04:00 Pulse 80 06/27/21 04:00 Resp 16 06/27/21 04:00 BP 104/66 06/27/21 04:00 Pulse Ox 97 06/27/21 04:00 Intake & Output 06/26/21 06/27/21 06/27/21 18:59 06:59 18:59 Intake Total 120 960 Balance 120 960 Intake: Oral 120 960 Other: # Voids 2 2 - Exam General appearance: The patient is alert, oriented, appears in no acute distress. HET: Head is normocephalic and atraumatic. Pupils are equal and reactive. Neck: Supple without lymphadenopathy. Trachea midline. No audible carotid bruit. Heart: S1 S2. Regular rate and rhythm. Lungs: Clear to auscultation bilaterally. Abdomen: Soft, nontender, nondistended. Extremities: Right lower extremity with swelling from the thigh down. Palpable pedal pulse. Thigh-high KELI hose in place. Right popliteal puncture site without any evidence of bleeding. Neurological: No focal deficits. Strength and sensation are grossly intact. - Labs CBC & Chem 7: 06/26/21 09:03 06/26/21 09:03 Labs: Abnormal Lab Results - Last 24 Hours (Table) 06/26/21 06/26/21 06/26/21 Range/Units 09:03 09:03 09:03 RBC 3.21 L (3.80-5.40) m/uL Hgb 9.2 L (11.4-16.0) gm/dL Hct 29.2 L (34.0-46.0) % APTT 40.3 H (22.0-30.0) sec Sodium 135 L (137-145) mmol/L Glucose 123 H (74-99) mg/dL Calcium 8.3 L (8.4-10.2) mg/dL Assessment and Plan Assessment: 1. Right lower extremity DVT femoral and iliac vein status post percutaneous mechanical thrombectomy of right common iliac, external iliac, and femoral vein with percutaneous transluminal balloon venoplasty of the right common iliac and external iliac vein. 2. Multiple bilateral pulmonary emboli 3. Recent section delivery, 8 a weeks ago Plan: 1. Continue Eliquis 10 mg twice a day, prescription sent 2. Consult to hematology, family history of DVTs 3. Increase and encourage ambulation 4. Compression stocking to right lower extremity 5. No indication at this time to proceed with EKOS 6. Discontinue IV pain medication Thank you for this consultation, the patient is cleared for discharge from vascular surgery The impression and plan of care has been dictated as directed. Dr. Dorsey I performed a history and examination of this patient, discussed the same with the dictator. I agree with the dictator's note ,documented as a scribe. Any additional findings or plans will be noted.
[2021-06-27] MEDS: SODIUM CHLORIDE 0.9% 1,000 ML IV SCH (12:49)
[2021-06-27 13:05] VITALS: BP 114/72; PULSE 88; RESP 18
--- NOTE | 2021-06-27 14:18 | P.PN ---
Subjective Progress Note Date: 06/27/21 Principal diagnosis: RLE DVT, travon PE Objective - Vital Signs Vital signs: Vital Signs Temp 98.5 F 06/27/21 08:00 Pulse 88 06/27/21 12:00 Resp 18 06/27/21 12:00 BP 114/72 06/27/21 12:00 Pulse Ox 95 06/27/21 12:00 Intake & Output 06/26/21 06/27/21 06/27/21 18:59 06:59 18:59 Intake Total 120 960 120 Balance 120 960 120 Intake: Oral 120 960 120 Other: # Voids 2 2 - Constitutional General appearance: Present: average body habitus, cooperative, no acute distress - EENT Eyes: Present: anicteric sclerae, EOMI ENT: Present: hearing grossly normal - Respiratory Details: resp even and unlabored - Peripheral edema leg Peripheral Edema: right: Other (compression stocking on, swelling much better, only slight swelling noted), left: None - Neurologic Neurologic: Present: CNII-XII intact - Musculoskeletal Musculoskeletal: Present: strength equal bilaterally - Psychiatric Psychiatric: Present: A&O x's 3, appropriate affect, intact judgment & insight - Labs CBC & Chem 7: 06/26/21 09:03 06/26/21 09:03 Assessment and Plan (1) Bilateral pulmonary embolism Current Visit: Yes Status: Acute Priority: High Code(s): I26.99 - OTHER PULMONARY EMBOLISM WITHOUT ACUTE COR PULMONALE SNOMED Code(s): 64010453 (2) DVT (deep venous thrombosis) Current Visit: Yes Status: Acute Priority: High Code(s): I82.409 - ACUTE EMBOLISM AND THOMBOS UNSP DEEP VN UNSP LOWER EXTREMITY SNOMED Code(s): 3764354 03 Plan: Patient has provoked RLE DVT/Travon PE s/p long car ride from [facility] (she states discomfort and swelling started in the RLE few days prior to driving here) and recent section 8 weeks ago. Reviewed the patient recommendation and before at least 6 months of anticoagulation, may need to consider a daily aspirin after completion. Doppler of the left lower extremity was neg for DVT Referral being made to [facility] near [place] where patient lives. We will make referral for her. She will be contacted with appt Patient states she has completed breast-feeding so, DOAC anticoagulation is reasonable. Will also pass along to [facility] and [place] anemia, likely iron deficient but, will have them complete workup and treatment for the same.
== END 2021-06-27 14:21 | disposition home or self-care (01) | DRG 270 ==
LOC: EC 18:48 → 4SSUR 22:53 → 3SCARD 06-25 01:29 → OBSVTOIN 06-25 22:45
PROVIDERS: ADMIT Internal Medicine; ATTEND Internal Medicine
PROC: B549ZZ3 Ultrasonography of Inferior Vena Cava, Intravascular (ICD-10-PCS; 2021-06-25)
PROC: B54BZZ3 Ultrasonography of Right Lower Extremity Veins, Intravascular (ICD-10-PCS; 2021-06-25)
PROC: 06CC3ZZ Extirpation of Matter from Right Common Iliac Vein, Percutaneous Approach (ICD-10-PCS; principal; 2021-06-25 10:50)
PROC: 047C3ZZ Dilation of Right Common Iliac Artery, Percutaneous Approach (ICD-10-PCS; 2021-06-25 10:50)
PROC: 06CF3ZZ Extirpation of Matter from Right External Iliac Vein, Percutaneous Approach (ICD-10-PCS; 2021-06-25 10:50)
PROC: 06CM3ZZ Extirpation of Matter from Right Femoral Vein, Percutaneous Approach (ICD-10-PCS; 2021-06-25 10:50)
PROC: 047H3ZZ Dilation of Right External Iliac Artery, Percutaneous Approach (ICD-10-PCS; 2021-06-25 10:50)
PROC: 3E033GC Introduction of Other Therapeutic Substance into Peripheral Vein, Percutaneous Approach (ICD-10-PCS; 2021-06-25 10:50)
DX: I82.4Y1 Acute embolism and thrombosis of unspecified deep veins of right proximal lower extremity (principal); I26.99 Other pulmonary embolism without acute cor pulmonale; D68.59 Other primary thrombophilia; E87.1 Hypo-osmolality and hyponatremia; E87.2 Acidosis; I82.441 Acute embolism and thrombosis of right tibial vein; I82.220 Acute embolism and thrombosis of inferior vena cava; I82.411 Acute embolism and thrombosis of right femoral vein; F32.A Depression, unspecified; F41.9 Anxiety disorder, unspecified; Z79.01 Long term (current) use of anticoagulants; Z79.899 Other long term (current) drug therapy; Z82.49 Family history of ischemic heart disease and other diseases of the circulatory system; Z86.32 Personal history of gestational diabetes; D72.829 Elevated white blood cell count, unspecified
CPT/HCPCS: 36415; 37187; 37248; 37252; 37253; 71275; 72193; 75820; 80048; 80053; 83735; 84484; 85025; 85027; 85379; 85610; 85730; 93005; 93306; 96361; 96374; 96375; 99291